=== PATIENT | male | born 1955 | race Caucasian/White ===

== ENCOUNTER 2017-05-03 09:15 | Inpatient (IN) ==
[2017-05-03] MEDS: SALINE FLUSH 10ml SYRINGE IVF PRN ×4 (09:35→14:44)
[2017-05-03] MEDS ORDERED: ONDANSETRON 4 MG/2 ML INJECTION IVP ONE (10:01)
[2017-05-03] MEDS ORDERED: NS 1,000 ML IV ONE ×2 (10:01→10:57)
[2017-05-03] MEDS ORDERED: DiltiaZEM 25 MG/5 ML INJECTION IVP ONE (10:08)
[2017-05-03] MEDS ORDERED: IOHEXOL 300mg/ml 100ml INJECTION ONE ×2 (10:27→11:52)
[2017-05-03] MEDS ORDERED: NS 100 ML ONE ×2 (10:27→11:52)
[2017-05-03] MEDS ORDERED: SALINE FLUSH 10ml SYRINGE ONE (10:28)
[2017-05-03] MEDS ORDERED: METOPROLOL 5mg/5ml INJECTION IVP ONE (10:57)
--- NOTE | 2017-05-03 11:55 | Emergency Department Report ---
Nausea/Vomiting/Diarrhea HPI - General Chief complaint: Nausea/Vomiting/Diarrhea Stated complaint: Vomiting Time Seen by Provider: 05/03/17 09:41 Source: EMS, RN notes reviewed Mode of arrival: EMS Limitations: altered mental status - History of Present Illness HPI Narrative: 61yo man presented to the ER for evaluation by EMS for lack of appetite and refusal to take his medications. Initial reports were that pt did not take his meds today, but a review of the MAR shows spotty medication adherence over the last 2 weeks. Pt has a h/o BP, schizophrenia, and MDD. MD complaint: other Onset (ago): week(s) (2) - Related Data Home Medications Medication Instructions Recorded Confirmed Bisacodyl Supp [Dulcolax] 10 mg RECTALLY DAILY PRN 05/03/17 05/03/17 Divalproex Sprinkle [Depakote 4 cap PO BID 05/03/17 05/03/17 Sprinkle] Haloperidol Inj [Haldol] 5 mg IM Q24H PRN 05/03/17 05/03/17 Hydrocodone/APAP 5/325 [[place] 1 tab PO Q4HR PRN 05/03/17 05/03/17 5/325] LORazepam [Ativan] 0.5 mg PO HS 05/03/17 05/03/17 LORazepam [Ativan] 0.5 mg PO Q3H PRN 05/03/17 05/03/17 Menthol [Biofreeze] 1 applicatio TP PRN 05/03/17 05/03/17 Milk of Magnesia [Mom] 30 ml PO DAILY PRN 05/03/17 05/03/17 Mirtazapine [Remeron] 15 mg PO HS 05/03/17 05/03/17 Ondansetron HCl [Zofran] 4 mg PO Q4HR PRN 05/03/17 05/03/17 fentaNYL [Fentanyl] 12 mcg TD Q3D 05/03/17 05/03/17 Allergies Allergy/AdvReac Type Severity Reaction Status Date / Time No Known Allergies Allergy Verified 05/03/17 09:44 Review of Systems Limitations: ROS unobtainable due to patient's medical condition PFSH Patient Stated Medical History Alzheimer's Disease Yes Dementia Yes Hypertension Yes Other GI Yes: CONSTIPATION Bipolar Disorder Yes Depression Yes: MAJOR DEPRESSIVE Schizophrenia Yes - Social History Smoking status: Unknown if ever smoked Physical Exam - Limitations Limitations: altered mental status - General General appearance: alert, in no apparent distress, cachectic - Normal Exams: Head:: Normocephalic without trauma Eyes:: Pupils are PERRLA w/ EOMI, No scleral icterus, irritation, or foreign bodies noted ENMT:: No facial trauma, nasal exudates, pharyngeal erythema, or exudates are noted Neck:: Full range of motion, without adenopathy Chest/Respirations:: Clear all smith, with good airflow, and symmetry bilaterally Abdomen:: Bowel sounds positive, soft, non-tender, non-distended, no hepatosplenomegaly Lymphatic:: No lymphadenopathy Musculoskeletal:: No tenderness, or deformity noted Integumentary:: No rashes, hives Neurological:: Patient is alert - Cardiovascular Cardiovascular exam: Present: tachycardia, irregular rhythm, normal heart sounds. Absent: regular rate, normal rhythm - Psychiatric Psychiatric exam: Present: agitated, flat affect Course Course Narrative: On initial presentation, pt was tachy (SVT) to the 160-180s. He was otherwise stable, but had not allowed EMS to place an IV. While attempting to place an IV , pt spontaneously converted to a sinus tachycardia with SVC's. IV was placed and IVF started, but pts BP was too low to comfortably give any medication for rate control. Ativan was given to help with agitation and facilitate anticipated interventions. Meanwhile, pt continued to change rhythm from SVT to A-fib w/ RVR to Sinus tachycardia. A second IV was started with IVF running in both IVs. BP increased to >100 systolic. At that time, pt was reassessed and decision was made to give 5mg of metoprolol IV. Rate was then maintained in A- fib/Sinus from 90-120BPM. When pt was deemed stable, he was taken to the radiology suite for Abd/pelv IV for possible SBO. On return, pt cont to fluctuate between A-fib with RVR and Sinus tachycardia. BP remained low, but MAPs remained above 65. Did not repeat metoprolol, despite increased rate to 110-130. Contacted hospitalist for admission. - Consultations Consultation #1: Hospitalist: Dr. Sparks will admit pt to CCU for further eval, treatment, and Cardiology consult. Time: 12:30 Vital Signs Temperature 97.5 F 05/03/17 09:16 Pulse Rate 135 H 05/03/17 09:16 Respiratory Rate 16 05/03/17 09:16 Blood Pressure 101/54 05/03/17 09:16 Pulse Oximetry 96 05/03/17 09:16 Temperature 97.5 F 05/03/17 09:16 Pulse Rate 136 H 05/03/17 12:30 Respiratory Rate 19 05/03/17 12:15 Blood Pressure 92/54 05/03/17 12:30 Pulse Oximetry 100 05/03/17 12:06 Nausea/Vomiting/Diarrhea - Differential Diagnosis Likely: traveler's diarrhea, food poisoning, gastroenteritis, drug-induced nausea and vomiting (SBO) - Medical Records Attestation: I reviewed the patient's medical records. - Lab Data Attestation: I reviewed the patient's lab results. Result diagrams: 05/03/17 09:44 05/03/17 09:44 Lab Results 05/03/17 05/03/17 05/03/17 Range/Units 09:44 09:44 09:44 WBC 8.8 (4.5-11.0) T/MM3 RBC 4.65 (4.50-5.90) M/MM3 Hgb 13.6 (13.5-17.5) GM/DL Hct 42.0 (41-53) % MCV 90.3 (80-100) UM3 MCH 29.2 (26-34) UUG MCHC 32.4 (31-37) GM/DL RDW Std Deviation 46.4 (36.9-50.2) FL Plt Count 333 (130-400) T/MM3 MPV 10.7 (9.4-12.4) UM3 Immature Gran % (Auto) 0.2 (0.0-0.5) % Neut % (Auto) 58.1 (33-66) % Lymph % (Auto) 29.6 (23-45) % [place] % (Auto) 10.5 H (0-9.0) % Eos % (Auto) 1.1 (0-4) % Baso % (Auto) 0.5 (0-2) % Neut # (Auto) 5.1 (1.8-7.7) T/MM3 Lymph # (Auto) 2.6 (1-4.8) T/MM3 [place] # (Auto) 0.9 H (0-0.8) T/MM3 Eos # (Auto) 0.1 (0-0.5) T/MM3 Baso # (Auto) 0.0 (0-0.2) T/MM3 Abs Immat Gran (auto) 0.02 (0.00-0.03) T/MM3 Turbidity < 20 (0-20) Sodium 148 H (134-144) MEQ/L Potassium 4.3 (3.6-5) MEQ/L Chloride 107 (98-107) MEQ/L Carbon Dioxide 27 (22-30) MEQ/L Anion Gap 14 (5-15) MEQ/L BUN 25.0 H (9-20) MG/DL Creatinine 0.8 (0.8-1.5) MG/DL GFR Calculation 98 BUN/Creatinine Ratio 31 H (6-26) RATIO Glucose 122 H (75-110) MG/DL Calculated Osmolality 289 H (261-280) MOSM/KG Calcium 9.5 (8.4-10.2) MG/DL Magnesium 2.2 (1.6-2.3) MG/DL Total Bilirubin 0.80 (0.20-1.30) MG/DL Icterus Index < 2 (0-7) AST 23 (17-59) U/L ALT 33 (21-72) U/L Alkaline Phosphatase 75 (38-126) U/L Total Protein 6.5 (6.3-8.2) G/DL Albumin 3.7 (3.5-5.0) G/DL Globulin 2.8 (2.4-3.6) G/DL Albumin/Globulin Ratio 1.3 (1.1-2.2) RATIO Lipase 50 (23-300) U/L Specimen Hemolysis < 15 (0-25) - Radiology Data Attestation: I reviewed the patient's radiology results. CT Abd/Pelv: FINDINGS: Lower thorax: There is a small left pleural effusion. There is a hiatal hernia. ABDOMEN: Liver: Unremarkable. No mass. Gallbladder and bile ducts: Unremarkable. No calcified stones. No ductal dilation. Pancreas: Unremarkable. No mass. No ductal dilation. Spleen: Unremarkable. No splenomegaly. Adrenals: Unremarkable. No mass. Kidneys and ureters: There is a 38 mm right renal simple appearing cyst. No hydronephrosis. Stomach and bowel: Scattered diverticula noted throughout the colon without evidence of acute diverticulitis. There is a paucity of feces noted throughout the colon except for the cecum and moderate feces in the rectal vault. No obstruction. Appendix: No findings to suggest acute appendicitis. PELVIS: Bladder: Unremarkable. No mass. Reproductive: Unremarkable as visualized. ABDOMEN and PELVIS: Intraperitoneal space: Unremarkable. No free air. No significant fluid collection. Bones/joints: Calcifications are seen in nondilated aorta and iliac vessels. No acute fracture. No dislocation. Soft tissues: Unremarkable. Vasculature: Moderate artery calcifications are noted. Lymph nodes: Unremarkable. No enlarged lymph nodes. IMPRESSION: Small left effusion. Moderate feces within the rectum - EKG Data EKG #1 EKG attestation: Yes: I reviewed and interpreted this EKG. Rhythm: SVT [place]/QRS: left axis deviation ST segment depression in: I (Globally) EKG #2 EKG attestation: Yes: I reviewed and interpreted this EKG. EKG shows normal: sinus rhythm, intervals, QRS complexes, ST-T waves Rate: tachycardia Disposition Clinical Impression: Tachycardia, Fecal impaction in rectum Hypotension Qualifiers: Hypotension type: unspecified hypotension type Qualified Code(s): I95.9 - Hypotension, unspecified [place]: [place] [facility] [place] Language: [place] Condition: Improved Prescriptions: No Action Milk of Magnesia [Mom] 30 ml PO DAILY PRN PRN Reason: Constipation Hydrocodone/APAP 5/325 [Antimony 5/325] 1 tab PO Q4HR PRN PRN Reason: Pain LORazepam [Ativan] 0.5 mg PO Q3H PRN PRN Reason: Anxiety Haloperidol Inj [Haldol] 5 mg IM Q24H PRN PRN Reason: Agitation Bisacodyl Supp [Dulcolax] 10 mg RECTALLY DAILY PRN PRN Reason: Constipation Menthol [Biofreeze] 1 applicatio TP PRN LORazepam [Ativan] 0.5 mg PO HS fentaNYL [Fentanyl] 12 mcg TD Q3D Divalproex Sprinkle [Depakote Sprinkle] 4 cap PO BID Mirtazapine [Remeron] 15 mg PO HS Ondansetron HCl [Zofran] 4 mg PO Q4HR PRN PRN Reason: Nausea Referrals: Lucretia Decker MD [Family Provider] - Time of Disposition: 12:49 - Seen By: physician
[2017-05-03] MEDS ORDERED: KETOROLAC 30 MG/ML INJECTION IVP ONE (12:13)
[2017-05-03] MEDS ORDERED: ONDANSETRON 4 MG/2 ML INJECTION IVP PRN (13:58)
[2017-05-03] MEDS ORDERED: HYDROCODONE/APAP 5mg/325mg TABLET PO PRN (14:05)
[2017-05-03] MEDS ORDERED: HALOPERIDOL 5 MG/ML INJECTION IM PRN (14:05)
[2017-05-03] MEDS ORDERED: BISACODYL 10 MG SUPPOSITORY RECTALLY PRN (14:05)
[2017-05-03] MEDS: NS 1,000 ML IV SCH ×2 (14:16→22:33)
--- NOTE | 2017-05-03 14:44 | History & Physical Report ---
History of Present Illness Date: 05/03/17 Chief complaint: a-fib with RVR, SIRS, nausea/vomiting HPI: Sonido Mcdonnell is a 61-year-old male resident of [facility] who presented to [facility] emergency room via EMS today, 05/03/17, for evaluation of nausea and vomiting. Mr. Mcdonnell has a history of Alzheimer's dementia with schizophrenia, bipolar disorder and major depressive disorder and is a poor historian. Limited prior medical records available from [facility]. History is contributed to by EMS, ED, nursing and prior records. It is reported that on Mr. Mcdonnell began having nausea with vomiting. Since that time, he has been on a clear liquid diet with poor oral intake and decreased appetite. It was also noted that he has not had a documented bowel movement since 04/27/17. Today nursing staff became concerned as Mr. Mcdonnell's vomit had a "metallic" smell to it, and nursing became concerned about possible blood in vomit. No known fevers or illness. Labs at the [facility] on 05/02 were unremarkable. EMS was contacted and upon evaluation, Sonido was noted to be tachycardic with a heart rate between 160-180's. At that time, nursing also reported that the Sonido had been refusing his psychiatric medications. Initially it was believed that he hadn't had his medications for a few days but after thorough review of the MAR, it appears that he has been intermittently compliant with his medications over the past 2 weeks. During his transfer to the ED, EMS reports that he was aggressive and agitated, preventing the placement of an IV. Upon arrival to the ED, vital signs revealed he was afebrile with a heart rate of 137 and blood pressure 90/62. Initially telemetry and EKG revealed SVT with a rate between 160-180. During the placement of an IV, he spontaneously converted to sinus tachycardia with SVC. He was then given Ativan 1mg IV due to his agitation and aggressive behaviors - he was swing at nursing. Labs were obtained. Blood counts were stable. BMP revealed hypernatremia with hyperosmolality and mild hyperglycemia without a history of diabetes. During his acute admission he was noted to transition from SVT to a-fib with RVR to sinus tachycardia off and on. A 2nd IV was started and he had 2L NS running simultaneously. Blood pressure improved slightly with a systolic pressure > 100. Metoprolol 5mg IV was given and improved his rate, decreasing it to between 90-120, which it has since maintained. Due to his borderline hypotension, Cardizem was held. CT abdomen/pelvis was obtained given his recent history of nausea and vomiting and showed moderate feces in the rectal vault and otherwise no acute changes or pathology. In light of his dysrhythmia and a-fib with RVR, Dr. Serrano was contacted and Mr. Mcdonnell was admitted to CCU as an inpatient for further evaluation, close cardiac and respiratory monitoring, cardiology consult with possible intervention and IV fluids for dehydration. Dr. Ragsdale was consulted and patient case discussed with Treasure Carrion APRN. The patient was seen immediately upon his arrival to CCU, room #4, and then later in conjunction with Dr. Serrano. Extensive review of his prior medical records, ED documentation, medication list and current chart were conducted. History and physical exam were extremely limited given Mr. Mcdonnell's mentation and history of dementia with recent treatment with Ativan. PCP is Dr. Decker. Review of chart provides documentation of patient's wishes to be a DNR which were confirmed by Dr. Serrano with patient's guardian. Review of Systems ROS unobtainable: due to mental status All systems PM: 10-point ROS was reviewed, no additional remarkable complaints except - Constitutional Constitutional: Absent: fever(s), increased appetite - EENMT Nose: Absent: nosebleeds Mouth/Throat: Present: dry mouth - Cardiovascular Cardiovascular: Absent: syncope, edema Vascular: Present: varicosities. Absent: pedal edema - Respiratory Respiratory: Absent: wheezing - Gastrointestinal Gastrointestinal: Present: constipation, hematemesis (questionable), nausea, vomiting - Genitourinary Genitourinary: Absent: genital lesions, scrotal swelling - Musculoskeletal Musculoskeletal: Present: abnormal gait, back pain (chronic). Absent: deformity - Integumentary/Breasts Integumentary: Absent: rash Integumentary Comments: seborrheic keratosis to scalp. - Neurological Neurological: Present: abnormal gait, abnormal speech, confusion, frequent falls. Absent: convulsions, focal weakness - Psychiatric Psychiatric: Present: behavioral changes, depression, mood swings - Endocrine Endocrine: Absent: flushing, polyphagia - Hematologic/Lymphatic Hematologic/Lymphatic: Absent: easy bruising - Allergic/Immunologic Allergic/Immunologic: Absent: seasonal rhinorrhea [facility] Patient Stated Medical History Alzheimer's disease. Dementia. Hypertension. CAD. Chronic pain. Hiatal hernia. Constipation. Gait instability with frequent falls. Bipolar disorder Major depressive disorder. Schizophrenia. Seborrheic keratosis. Surgical History: Unable to obtain due to patient's dementia and mentation. Family History Updates: Unable to obtain due to patient's dementia and mentation. - Social History Smoking status: Unknown if ever smoked Substance use type: does not use Alcohol intake frequency: does not drink Housing: [facility] ([facility]) Household members: none Current occupational status: retired, disabled Does patient use chewing tobacco?: No Current residence: Shelter Social history: PCP - Dr. Decker. Medications Home Medications Medication Instructions Recorded Confirmed Type Bisacodyl Supp [Dulcolax] 10 mg RECTALLY DAILY PRN 05/03/17 05/03/17 History Divalproex Sprinkle [Depakote 4 cap PO BID 05/03/17 05/03/17 History Sprinkle] Haloperidol Inj [Haldol] 5 mg IM Q24H PRN 05/03/17 05/03/17 History Hydrocodone/APAP 5/325 [[place] 1 tab PO Q4HR PRN 05/03/17 05/03/17 History 5/325] LORazepam [Ativan] 0.5 mg PO HS 05/03/17 05/03/17 History LORazepam [Ativan] 0.5 mg PO Q3H PRN 05/03/17 05/03/17 History Menthol [Biofreeze] 1 applicatio TP PRN 05/03/17 05/03/17 History Milk of Magnesia [Mom] 30 ml PO DAILY PRN 05/03/17 05/03/17 History Mirtazapine [Remeron] 15 mg PO HS 05/03/17 05/03/17 History Ondansetron HCl [Zofran] 4 mg PO Q4HR PRN 05/03/17 05/03/17 History fentaNYL [Fentanyl] 12 mcg TD Q3D 05/03/17 05/03/17 History Allergies Allergy/AdvReac Type Severity Reaction Status Date / Time No Known Allergies Allergy Verified 05/03/17 09:44 Exam Vital Signs: Temperature 97.6 F 05/03/17 13:34 Pulse Rate 113 H 05/03/17 13:34 Respiratory Rate 18 05/03/17 13:34 Blood Pressure 92/50 05/03/17 13:34 Pulse Oximetry 99 05/03/17 13:22 Telemetry Rhythm: A-fib with RVR Comments: Patient seen upon arrival to room, ICU #4. Nursing present and later joined by Dr. Serrano. Sleeping and arouses briefly with painful stimuli. - Constitutional Present: no acute distress, well nourished, well developed, thin, somnolent Comments: Patient was agitated and aggressive in ED and received ativan 1mg IV. Patient now sleeping without agitation. - Routine HEENT Exam Head: Present: normocephalic, atraumatic ENT: Present: mucous membranes dry Comments: limited exam due to patient sleeping. - Routine Neck Exam Present: supple, trachea midline - Routine Chest/Breast/Axilla Exam Chest wall: Absent: pacemaker - Routine Respiratory Exam Present: decreased breath sounds. Absent: stridor, wheezes, crackles - Routine Cardiovascular Exam Present: irregularly irregular - Routine Abdominal Exam Present: soft, normoactive bowel sounds, non distended, non tender. Absent: rebound, guarding, firm, rigid, hernia - Routine Exam Penile: Present: circumcision. Absent: swelling, lesions, vesicles Scrotal: Absent: swelling, erythema Groin: Absent: tenderness, erythema Perineal: Present: erythema Comments: mild skin breakdown to perianal region. - Routine Extremities Exam Present: no edema, pulses intact, normal capillary refill. Absent: cyanosis, clubbing, calf tenderness - Routine Back/Spine/Pelvis Exam Back/Spine: Present: full ROM, kyphosis Comments: patient actively moving on exam without signs of distress. - Routine Skin Exam Present: intact, dry, warm. Absent: jaundice Comments: afebrile; seborrheic keratosis to scalp noted. - Routine Neurological Exam Present: altered mental status, moving all extremities, hearing grossly intact. Absent: hemineglect, facial asymmetry - Routine Psychiatric Exam Present: unable to assess Comments: recent behaviors with aggression and agitation treated with ativan in ED; now patient is somnolent. Results - Labs CBC & Chem 7: 05/03/17 09:44 05/03/17 09:44 Labs: hypernatremia with hyperosmolality - present on admission. hyperglycemia in non-diabetic - present on admission. - Imaging and Cardiology CT scan - abdomen Status: image reviewed by me Additional comments: V-Rad reading - no acute disease noted; scattered diverticula without evidence of diverticulitis; moderate feces noted in rectal vault without signs of obstruction; small left lower lobe effusion; hiatal hernia. Assessment and Plan (1) SIRS (systemic inflammatory response syndrome) Problem details: present on admission. Current visit: Yes Status: Acute (2) Nausea and vomiting Problem details: present on admission. Current visit: Yes Status: Acute (3) Tachycardia Problem details: present on admission - alternativing between a-fib with RVR, sinus tachycarida and SVT. Current visit: Yes Status: Acute (4) Hyperosmolality with hypernatremia Problem details: present on admission. Current visit: Yes Status: Acute (5) Dehydration Problem details: present on admission. Current visit: Yes Status: Acute (6) Fecal impaction in rectum Problem details: present on admission. Current visit: Yes Status: Acute Assessment and Plan: Assessment SIRS, present on admission, acute. Nausea and vomiting, present on admission, acute. Dysrhythmic tachycardia, present on admission, acute. Hypernatremia with hyperosmolality, present on admission, acute. Dehydration, present on admission, acute. Constipation with fecal impaction, present on admission, acute on chronic. Alzheimer's disease and dementia with behaviors, present on admission, acute on chronic. Hypertension - patient hypotensive on admission. CAD, chronic. Chronic pain. Gait instability with frequent falls. Psychiatric illness - bipolar disorder, major depressive disorder, and schizophrenia, chronic. Plan - 05/03/17 (Admission - [facility]). Admit to inpatient status to CCU under the care of Dr. Serrano for close cardiac and respiratory monitoring. Dr. Ragsdale consulted for cardiac evaluation and expertise. Unknown history of arrhythmia. EKGs concerning for SVT vs. A-fib with RVR vs. Sinus tach. Discussed patient case with MADDI Amanda. Patient given metoprolol 5mg IV in ED with some rate improvement. Currently patient is rate controlled but remains dysrhythmic. Continue to monitor closely on telemetry. TSH within normal limits. Magnesium stable. Potassium stable. SIRS markers met including tachycardia, tachypnea, hyperglycemia in non- diabetic. Concerning for sepsis given hypotension, cardiac dysfunction and borderline lactate at 1.9. No current infectious source known. UA unremarkable. CXR results pending. Procalcitonin pending. Will obtain serial lactates and blood cultures x 2. Initiate Rocephin 1g IV x 24 hours for empiric treatment. If patient remains afebrile without leukocytosis or evidence of infection, consider discontinuation of antibiotics. History of nausea/vomiting since 04/27. CBC stable without leukocytosis or known fever. Hypernatremia with hyperosmolality present on admission. Patient given 2L NS in ED. Will continue NS at 125cc/hr given dehydration and current poor oral intake. Will maintain clear liquid diet as able. Will obtain speech therapy evaluation in AM for dysphagia. Monitor I&O closely as well as daily weights. Zofran as needed for nausea/vomiting. Lactate within normal limits. LFTs stable. CT abdomen/pelvis obtained in ED revealed no acute changes or disease, scattered diverticulosis without evidence of diverticulitis, moderate feces in rectal vault and no obstruction, small left lower lobe effusion and hiatal hernia. Given concern for sepsis and dysrhythmia as well as effusion noted on CT, will obtain CXR now for further complete evaluation. Encourage incentive spirometry as able. Bruise to right hip noted. No reported history of trauma. No apparent tenderness with palpation. CT abdomen/pelvis noted no acute bony changes or fracture. If apparent pain with movement or other changes are noted, may consider obtaining separate imaging of hip. Will hold off for now. Given concern for possible blood in vomit per NH, will initiate Protonix 40mg IV daily for GI protection. Will assess for occult blood in emesis. SCDs for DVT prophylaxis. Will discuss possible Lovenox or other anticoagulant with Dr. Serrano for additional prophylaxis. Continue home medications. Haldol and ativan for agitation and aggression. Baseline behaviors are unknown. May consider psychiatric consult if behaviors continue. Continue with bowel motivation as needed given history of constipation and current fecal impaction. Provide safe and supportive environment. DNR documentation noted in chart and verified by Dr. eSrrano with patient's guardian. Patient is expected to stay > 2 over nights and upon discharge, care will be returned to his PCP, Dr. Decker. DVT Prophylaxis: SCD's GI Prophylaxis: Protonix Resuscitation Status: Do Not Resuscitate - Time spent with patient Time with patient PN: other (110 minutes) Sepsis Assessment - Evaluation Possible source: pulmonary Confirmed Suspected Infection: No SIRS Criteria: pulse > or equal to 90 beats/minute, blood sugar >120 in non- diabetic, RR > or equal to 20 Severe Sepsis: SBP < 90, cardiac dysfunction Hospital Course Summary Disclaimer: The visit summary below is not to be considered part of the above Progress Note. Hospital Course: Assessment SIRS, present on admission, acute. Nausea and vomiting, present on admission, acute. Dysrhythmic tachycardia, present on admission, acute. Hypernatremia with hyperosmolality, present on admission, acute. Dehydration, present on admission, acute. Constipation with fecal impaction, present on admission, acute on chronic. Alzheimer's disease and dementia with behaviors, present on admission, acute on chronic. Hypertension - patient hypotensive on admission. CAD, chronic. Chronic pain. Gait instability with frequent falls. Psychiatric illness - bipolar disorder, major depressive disorder, and schizophrenia, chronic. Plan - 05/03/17 (Admission - [facility]). Admit to inpatient status to CCU under the care of Dr. Serrano for close cardiac and respiratory monitoring. Dr. Ragsdale consulted for cardiac evaluation and expertise. Unknown history of arrhythmia. EKGs concerning for SVT vs. A-fib with RVR vs. Sinus tach. Discussed patient case with MADDI Amanda. Patient given metoprolol 5mg IV in ED with some rate improvement. Currently patient is rate controlled but remains dysrhythmic. Continue to monitor closely on telemetry. TSH within normal limits. Magnesium stable. Potassium stable. SIRS markers met including tachycardia, tachypnea, hyperglycemia in non- diabetic. Concerning for sepsis given hypotension, cardiac dysfunction and borderline lactate at 1.9. No current infectious source known. UA unremarkable. CXR results pending. Procalcitonin pending. Will obtain serial lactates and blood cultures x 2. Initiate Rocephin 1g IV x 24 hours for empiric treatment. If patient remains afebrile without leukocytosis or evidence of infection, consider discontinuation of antibiotics. History of nausea/vomiting since 04/27. CBC stable without leukocytosis or known fever. Hypernatremia with hyperosmolality present on admission. Patient given 2L NS in ED. Will continue NS at 125cc/hr given dehydration and current poor oral intake. Will maintain clear liquid diet as able. Will obtain speech therapy evaluation in AM for dysphagia. Monitor I&O closely as well as daily weights. Zofran as needed for nausea/vomiting. Lactate within normal limits. LFTs stable. CT abdomen/pelvis obtained in ED revealed no acute changes or disease, scattered diverticulosis without evidence of diverticulitis, moderate feces in rectal vault and no obstruction, small left lower lobe effusion and hiatal hernia. Given concern for sepsis and dysrhythmia as well as effusion noted on CT, will obtain CXR now for further complete evaluation. Encourage incentive spirometry as able. Bruise to right hip noted. No reported history of trauma. No apparent tenderness with palpation. CT abdomen/pelvis noted no acute bony changes or fracture. If apparent pain with movement or other changes are noted, may consider obtaining separate imaging of hip. Will hold off for now. Given concern for possible blood in vomit per NH, will initiate Protonix 40mg IV daily for GI protection. Will assess for occult blood in emesis. SCDs for DVT prophylaxis. Will discuss possible Lovenox or other anticoagulant with Dr. Serrano for additional prophylaxis. Continue home medications. Haldol and ativan for agitation and aggression. Baseline behaviors are unknown. May consider psychiatric consult if behaviors continue. Continue with bowel motivation as needed given history of constipation and current fecal impaction. Provide safe and supportive environment. DNR documentation noted in chart and verified by Dr. Serrano with patient's guardian. Patient is expected to stay > 2 over nights and upon discharge, care will be returned to his PCP, Dr. Decker.
[2017-05-03] MEDS ORDERED: BISACODYL 10 MG SUPPOSITORY RECTALLY ONE (15:18)
[2017-05-03] MEDS: CEFTRIAXONE 1 G in NS 100 ML IV SCH (15:36)
[2017-05-03] MEDS: PANTOPRAZOLE 40 MG INJECTION IVP SCH (16:56)
[2017-05-03] MEDS ORDERED: ASENAPINE 5 MG SUBLINGUAL TABLET SL SCH (21:00)
[2017-05-04] MEDS: MIRTAZAPINE 15 MG TABLET PO SCH ×2 (04:34→21:30)
[2017-05-04] MEDS: DIVALPROEX SPRINKLE 125 MG CAPSULE PO SCH ×3 (04:34→08:44)
[2017-05-04] MEDS: HALOPERIDOL 5 MG/ML INJECTION IVP PRN ×3 (04:40→21:49)
[2017-05-04] MEDS: SALINE FLUSH 10ml SYRINGE IVF PRN (04:41)
[2017-05-04] MEDS: NS 1,000 ML IV SCH (06:39)
[2017-05-04] MEDS: PANTOPRAZOLE 40 MG INJECTION IVP SCH (08:12)
--- NOTE | 2017-05-04 09:52 | CT Scan Report ---
Indication: N/V/anorexia PROCEDURE: CT abdomen pelvis w con: Encounter: Initial Comparison: None. Findings: CT ABDOMEN: There is a trace amount of left basilar atelectasis. Heart size normal. No pleural effusion. Incidental note is made of a recurrent right hepatic vein. There is a small hiatal hernia. Both kidneys excrete contrast into nondilated renal collecting system. There is a fairly large but simple appearing exophytic cyst projecting from the anterior inferior right kidney. The liver, spleen, pancreas, and adrenal glands are normal. The gallbladder is thin walled and nondistended, without stones. The abdominal aorta is non-aneurysmal, with extensive circumferential calcific atherosclerotic disease. There is no retroperitoneal or mesenteric adenopathy. There is no definite bowel distention or bowel wall thickening. CT PELVIS: There is moderate stool in the rectal vault without fecal impaction. A normal appendix is tentatively identified. The urinary bladder is not distended. There is no pelvic sidewall adenopathy. No free fluid. No definite bony destructive process. IMPRESSION: No evidence for infectious or inflammatory process. No evidence for mass or adenopathy. Preliminary report was provided by Jagdeep garay .
--- NOTE | 2017-05-04 10:20 | XRay Report ---
Indication: hypotension PROCEDURE: XR chest 1V: Encounter: Initial Comparison: None. Findings: The examination is slightly expiratory in nature. There is some left basilar atelectasis. No definite pleural effusion. Heart size is normal. No pneumothorax. No mediastinal or hilar adenopathy. No subdiaphragmatic free air. Impression: Left basilar atelectasis. No definite pleural effusion or lobar consolidation. .
--- NOTE | 2017-05-04 12:08 | Cardiology Consult Note ---
<Treasure Carrillo - Last Filed: 05/05/17 14:52> History of Present Illness Consult date: 05/03/17 Requesting physician: Alla Vance Consult reason: atrial fibrillation Chief complaint: afib RVR/ SVT History of present illness: Sonido Mcdonnell is a 61-year-old male resident of [facility] who presented to [facility] emergency room via EMS 05/03/17, for evaluation of nausea and vomiting. He has a history of Alzheimer's dementia with schizophrenia, bipolar disorder and major depressive disorder and is a poor historian. Limited prior medical records available from [facility]. History is contributed to by EMS, ED, nursing and prior records. On 04/27/17, he reportedly began having nausea with vomiting. Since that time, he has been on a clear liquid diet with poor oral intake and decreased appetite. It was also noted that he has not had a documented bowel movement since 04/27/17. Nursing staff became concerned as his vomit had a "metallic" smell to it, and nursing became concerned about possible blood in vomit. No known fevers or illness. EMS was contacted and upon evaluation, Sonido was noted to be tachycardic with a heart rate between 160- 180's. He has reportedly been refusing his psychiatric medications intermittently over the past 2 weeks. During his transfer to the ED, EMS reports that he was aggressive and agitated, initially telemetry and EKG revealed SVT with a rate between 160-180. During the placement of an IV, he spontaneously converted to sinus tachycardia with SVC. He was then given Ativan 1mg IV due to his agitation and aggressive behaviors . Later he was noted to transition from SVT to a-fib with RVR to sinus tachycardia off and on. Metoprolol 5mg IV was given and improved his rate , decreasing it to between 90-120. In light of his dysrhythmia and a-fib with RVR, Dr. Serrano was contacted and Mr. Mcdonnell was admitted to CCU as an inpatient for further evaluation, close cardiac and respiratory monitoring, cardiology consult with possible intervention and IV fluids for dehydration. Dr. Ragsdale was consulted and we appreciate the consult. Review of Systems ROS unobtainable: due to mental status - Constitutional Constitutional: Present: fever(s) PFSH Patient Stated Medical History Alzheimer's Disease Yes Dementia Yes Hypertension Yes Hiatal Hernia Yes Other GI Yes: CONSTIPATION Other Yes: frequent falls Bipolar Disorder Yes Depression Yes: MAJOR DEPRESSIVE Schizophrenia Yes Other Behavioral Health Yes: [facility] Medical History Tachycardia (Acute Medical) present on admission - alternativing between a-fib with RVR, sinus tachycarida and SVT. Hypotension (Acute Medical) Fecal impaction in rectum (Acute Medical) present on admission. Hyperosmolality with hypernatremia (Acute Medical) present on admission. Dehydration (Acute Medical) present on admission. SIRS (systemic inflammatory response syndrome) (Acute Medical) present on admission. Nausea and vomiting (Acute Medical) present on admission. Surgical History: Unable to obtain due to patient's dementia and mentation. Family History: Unable to obtain from Patient due to mental status - Social History Smoking status: Unknown if ever smoked Housing: [facility] Household members: none Current occupational status: disabled Does patient use chewing tobacco?: No Current residence: [facility] Medications Home Medications Medication Instructions Recorded Confirmed Type Bisacodyl Supp [Dulcolax] 10 mg RECTALLY DAILY PRN 05/03/17 05/03/17 History Divalproex Sprinkle [Depakote 4 cap PO BID 05/03/17 05/03/17 History Sprinkle] Haloperidol Inj [Haldol] 5 mg IM Q24H PRN 05/03/17 05/03/17 History Hydrocodone/APAP 5/325 [[place] 1 tab PO Q4HR PRN 05/03/17 05/03/17 History 5/325] LORazepam [Ativan] 0.5 mg PO HS 05/03/17 05/03/17 History LORazepam [Ativan] 0.5 mg PO Q3H PRN 05/03/17 05/03/17 History Menthol [Biofreeze] 1 applicatio TP PRN 05/03/17 05/03/17 History Milk of Magnesia [Mom] 30 ml PO DAILY PRN 05/03/17 05/03/17 History Mirtazapine [Remeron] 15 mg PO HS 05/03/17 05/03/17 History Ondansetron HCl [Zofran] 4 mg PO Q4HR PRN 05/03/17 05/03/17 History fentaNYL [Fentanyl] 12 mcg TD Q3D 05/03/17 05/03/17 History Allergies Allergy/AdvReac Type Severity Reaction Status Date / Time No Known Allergies Allergy Verified 05/03/17 09:44 Exam Vital signs: Temperature 97.9 F 05/04/17 07:01 Pulse Rate 95 05/04/17 07:41 Respiratory Rate 16 05/04/17 07:01 Blood Pressure 156/63 H 05/04/17 07:01 Pulse Oximetry 96 05/04/17 07:01 - Constitutional no acute distress, well nourished, cooperative - Routine HEENT Exam Head: Present: normocephalic ENT: Present: mucous membranes moist - Routine Neck Exam Absent: JVD, carotid bruit - Routine Chest/Breast/Axilla Exam Chest wall: Absent: tenderness - Routine Respiratory Exam Present: CTA bilaterally. Absent: rales, wheezes - Routine Cardiovascular Exam Present: RRR, no murmur. Absent: JVD - Routine Abdominal Exam Present: soft, normoactive bowel sounds - Routine Extremities Exam Present: no edema - Routine Skin Exam Present: intact, dry, warm - Routine Neurological Exam Present: altered mental status - Routine Psychiatric Exam Present: unable to assess Results 05/05/17 04:04 05/05/17 04:04 CBC 05/04/17 Range/Units 03:29 WBC 6.4 (4.5-11.0) T/MM3 RBC 3.60 L (4.50-5.90) M/MM3 Hgb 10.7 L D (13.5-17.5) GM/DL Hct 33.0 L D (41-53) % Plt Count 236 (130-400) T/MM3 Comprehensive Metabolic Panel 05/04/17 Range/Units 03:29 Sodium 151 H (134-144) MEQ/L Potassium 4.3 (3.6-5) MEQ/L Chloride 117 H D (98-107) MEQ/L Carbon Dioxide 25 (22-30) MEQ/L BUN 20.0 (9-20) MG/DL Creatinine 0.9 (0.8-1.5) MG/DL Glucose 83 (75-110) MG/DL Calcium 8.2 L D (8.4-10.2) MG/DL Albumin 3.0 L (3.5-5.0) G/DL Intake and Output 05/03/17 05/04/17 05/04/17 22:59 06:59 14:59 Intake Total 1100.000 / 2819.620 3609 / 1000 30 / 30 Output Total 75 / 75 Balance 1100.000 / 6424.818 0948 / 1000 -45 / -45 Intake: IV 1100.000 / 8728.974 6892 / 1000 Ceftriaxone 1 g In Ns 100 100 / 100 ml @ 200 mls/hr IV Q24H B[facility]AR Rx#:[id number] Ns 1,000 ml @ 125 mls/hr 1000.000 / 0853.029 1493 / 1000 IV .Q8H BANDAR Rx#:[id number] Oral 30 / 30 Output: Urine 75 / 75 Other: Urine Color Light [place] Urine Odor Strong Stool Color Brown Brown Brown Stool Consistency Soft Soft Soft Formed Size of Bowel Movement Small Moderate Large # Voids 1 # Incontinent Voids 1 1 # Bowel Movements 1 # Incontinent Bowel 1 1 Movements Weight 163 lb 5.8 oz Patient Weight 05/05/17 06:59 Weight 163 lb 5.8 oz - Imaging and Cardiology Echo: report reviewed EKG results: image reviewed Imaging & Cardiology Narrative: Date of Exam: 05/04/17 Type of Exam(s): US echo doppler complete DATE OF PROCEDURE May 04, [address] Shannan Serrano This is a two-dimensional echo with spectral Doppler, color-flow and M-mode. It was obtained in a patient with arrhythmias. Left atrial dimension is normal. Left ventricle end-diastolic dimension is normal. Left ventricle wall thickness is normal. LV systolic function is normal with ejection fraction of 55%. Right atrium is normal. Right ventricle is normal. Aortic root dimension is normal. Mitral valve is morphologically normal with trace of mitral regurgitation.. Aortic valve is a trileaflet structure with no stenosis or insufficiency. Tricuspid valve shows trace of tricuspid regurgitation with normal estimated pulmonary artery systolic pressure of 23. Pulmonary valve shows no pulmonary insufficiency. There is no pericardial effusion. IMPRESSION 1. Normal LV systolic function with ejection fraction of 55%. 2. Trace of mitral regurgitation. 3. Trace of tricuspid regurgitation with normal estimated pulmonary artery systolic pressure of 23. 4. Aortic sclerosis. Date of Exam: 05/03/17 Ordering Provider: Glo Gonsalez Type of Exam(s): XR chest 1V Reason for Exam(s): hypotension Indication: hypotension PROCEDURE: XR chest 1V: Encounter: Initial Comparison: None. Findings: The examination is slightly expiratory in nature. There is some left basilar atelectasis. No definite pleural effusion. Heart size is normal. No pneumothorax. No mediastinal or hilar adenopathy. No subdiaphragmatic free air. Impression: Left basilar atelectasis. No definite pleural effusion or lobar consolidation. Assessment and Plan - Assessment and Plan (1) Tachycardia Problem details: present on admission - alternativing between a-fib with RVR, sinus tachycarida and SVT. Current visit: Yes Status: Acute Metoprolol 25mg po BID TSH, Mag Echocardiogram Hospital Course Summary Disclaimer: The visit summary below is not to be considered part of the above Progress Note. Hospital Course: Assessment SIRS, present on admission, acute. Nausea and vomiting, present on admission, acute. Dysrhythmic tachycardia, present on admission, acute. Hypernatremia with hyperosmolality, present on admission, acute. Dehydration, present on admission, acute. Constipation with fecal impaction, present on admission, acute on chronic. Alzheimer's disease and dementia with behaviors, present on admission, acute on chronic. Hypertension - patient hypotensive on admission. CAD, chronic. Chronic pain. Gait instability with frequent falls. Psychiatric illness - bipolar disorder, major depressive disorder, and schizophrenia, chronic. Plan - 05/03/17 (Admission - [facility] Admit to inpatient status to CCU under the care of Dr. Serrano for close cardiac and respiratory monitoring. Dr. Ragsdale consulted for cardiac evaluation and expertise. Unknown history of arrhythmia. EKGs concerning for SVT vs. A-fib with RVR vs. Sinus tach. Discussed patient case with MADDI Amanda. Patient given metoprolol 5mg IV in ED with some rate improvement. Currently patient is rate controlled but remains dysrhythmic. Continue to monitor closely on telemetry. TSH within normal limits. Magnesium stable. Potassium stable. SIRS markers met including tachycardia, tachypnea, hyperglycemia in non- diabetic. Concerning for sepsis given hypotension, cardiac dysfunction and borderline lactate at 1.9. No current infectious source known. UA unremarkable. CXR results pending. Procalcitonin pending. Will obtain serial lactates and blood cultures x 2. Initiate Rocephin 1g IV x 24 hours for empiric treatment. If patient remains afebrile without leukocytosis or evidence of infection, consider discontinuation of antibiotics. History of nausea/vomiting since 11/27. CBC stable without leukocytosis or known fever. Hypernatremia with hyperosmolality present on admission. Patient given 2L NS in ED. Will continue NS at 125cc/hr given dehydration and current poor oral intake. Will maintain clear liquid diet as able. Will obtain speech therapy evaluation in AM for dysphagia. Monitor I&O closely as well as daily weights. Zofran as needed for nausea/vomiting. Lactate within normal limits. LFTs stable. CT abdomen/pelvis obtained in ED revealed no acute changes or disease, scattered diverticulosis without evidence of diverticulitis, moderate feces in rectal vault and no obstruction, small left lower lobe effusion and hiatal hernia. Given concern for sepsis and dysrhythmia as well as effusion noted on CT, will obtain CXR now for further complete evaluation. Encourage incentive spirometry as able. Bruise to right hip noted. No reported history of trauma. No apparent tenderness with palpation. CT abdomen/pelvis noted no acute bony changes or fracture. If apparent pain with movement or other changes are noted, may consider obtaining separate imaging of hip. Will hold off for now. Given concern for possible blood in vomit per NH, will initiate Protonix 40mg IV daily for GI protection. Will assess for occult blood in emesis. SCDs for DVT prophylaxis. Will discuss possible Lovenox or other anticoagulant with Dr. Serrano for additional prophylaxis. Continue home medications. Haldol and ativan for agitation and aggression. Baseline behaviors are unknown. May consider psychiatric consult if behaviors continue. Continue with bowel motivation as needed given history of constipation and current fecal impaction. Provide safe and supportive environment. DNR documentation noted in chart and verified by Dr. Serrano with patient's guardian. Patient is expected to stay > 2 over nights and upon discharge, care will be returned to his PCP, Dr. Decker. <Jaron Ragsdale - Last Filed: 05/06/17 07:31> [facility] Patient Stated Medical History Alzheimer's Disease Yes Dementia Yes Hypertension Yes Hiatal Hernia Yes Other GI Yes: CONSTIPATION Other Yes: frequent falls Bipolar Disorder Yes Depression Yes: MAJOR DEPRESSIVE Schizophrenia Yes Other Behavioral Health Yes: [facility] Medical History Tachycardia (Acute Medical) present on admission - alternativing between a-fib with RVR, sinus tachycarida and SVT. Hypotension (Acute Medical) Fecal impaction in rectum (Acute Medical) present on admission. Hyperosmolality with hypernatremia (Acute Medical) present on admission. Dehydration (Acute Medical) present on admission. SIRS (systemic inflammatory response syndrome) (Acute Medical) present on admission. Nausea and vomiting (Resolved Medical) present on admission. Exam Vital signs: Temperature 96.9 F 05/06/17 04:00 Pulse Rate 79 05/06/17 04:00 Respiratory Rate 20 05/06/17 04:00 Blood Pressure 122/69 05/06/17 04:00 Pulse Oximetry 98 05/06/17 04:00 Results 05/06/17 04:49 05/06/17 04:49 CBC 05/06/17 Range/Units 04:49 WBC 4.0 L (4.5-11.0) T/MM3 RBC 3.78 L (4.50-5.90) M/MM3 Hgb 11.0 L D (13.5-17.5) GM/DL Hct 33.3 L (41-53) % Plt Count 244 (130-400) T/MM3 Neut # (Auto) 2.1 (1.8-7.7) T/MM3 Lymph # (Auto) 1.4 (1-4.8) T/MM3 [place] # (Auto) 0.3 (0-0.8) T/MM3 Eos # (Auto) 0.2 (0-0.5) T/MM3 Baso # (Auto) 0.0 (0-0.2) T/MM3 Comprehensive Metabolic Panel 05/06/17 Range/Units 04:49 Sodium 143 (134-144) MEQ/L Potassium 4.1 (3.6-5) MEQ/L Chloride 111 H (98-107) MEQ/L Carbon Dioxide 23 (22-30) MEQ/L BUN 7.0 L (9-20) MG/DL Creatinine 0.7 L (0.8-1.5) MG/DL Glucose 73 L (75-110) MG/DL Calcium 8.1 L (8.4-10.2) MG/DL Intake and Output 05/05/17 05/06/17 05/06/17 22:59 06:59 14:59 Intake Total 1567.5 / 1567.5 469.167 / 469.167 Balance 1567.5 / 1567.5 469.167 / 469.167 Intake: IV 1517.5 / 1517.5 469.167 / 469.167 1/2 Ns 1,000 ml @ 125 mls 1412.5 / 1412.5 /hr IV .Q8H [facility] Rx#: [id number] NS with KCL 20 mEq 1,000 469.167 / 469.167 ml @ 50 mls/hr IV .Q20H [facility] Rx#:[id number] Valproate IV 500 mg In Ns 105 / 105 100 ml @ 100 mls/hr IV Q12H BANDAR Rx#:[id number] Oral 50 / 50 Other: Size of Bowel Movement Moderate # Incontinent Voids 1 1 # Incontinent Bowel 1 Movements Assessment and Plan - Attestation Attestation Narrative: 05/06/17 07:31 Recommendation After examining the patient I agree with the above assessment. I am involved in the formulation of the patient's plan of care. - Assessment and Plan (1) Tachycardia Problem details: present on admission - alternativing between a-fib with RVR, sinus tachycarida and SVT. Current visit: Yes Status: Acute Hospital Course Summary Disclaimer: The visit summary below is not to be considered part of the above Progress Note.
[2017-05-04] MEDS: 1/2 NS 1,000 ML IV SCH ×2 (12:45→23:04)
[2017-05-04] MEDS ORDERED: FALL RISK - PHARMACY CONSULT XX ONE (14:01)
[2017-05-04] MEDS: CEFTRIAXONE 1 G in NS 100 ML IV SCH (14:09)
[2017-05-04] MEDS: VALPROATE IV 500 MG in NS 100 ML IV SCH (18:03)
--- NOTE | 2017-05-04 19:24 | Progress Note ---
- Date 05/04/17 Subjective: Sonido was resting comfortably when sitting. He denied dyspnea, chest pain, nausea , abdominal pain, or lightheadedness. Nursing reports he is having bowel movements about every 2 hours after a suppository-stools were initially's formed but have become soft. Patient reports his appetite is good but nursing indicates he is taking little orally and that he's not taking medications at all which apparently was a problem preceding transfer to the hospital. Objective Vital signs: Temperature 96.9 F 05/04/17 17:22 Pulse Rate 85 05/04/17 17:47 Respiratory Rate 17 05/04/17 17:22 Blood Pressure 137/71 05/04/17 17:22 Pulse Oximetry 96 05/04/17 17:22 I/O 5765/575 + inc EXAM General-NAD, speech very mumbled HEENT-conjunctiva clear, pupils equal, sclera anicteric, conjugate eye movements , oral membranes dry Lungs-respirations nonlabored, fair airflow, anterior smith clear Cardiac-rhythm is slightly irregular with S1-S2 audible Abd-soft, nontender, bowel sounds present Ext-without edema Neuro-MAEW Psych-flat affect - Height/Weight/BMI: Weight 74.1 kg Results - Labs CBC & Chem 7: 05/04/17 03:29 05/04/17 03:29 Labs: Lactic acid 1.9-1.8-1.0 Microbiology Results: Microbiology 05/03/17 14:30 Urine, Cath Straight Urine Culture - Preliminary No Growth After 1 Day 05/03/17 14:58 Peripheral/Iv Start Blood Culture - Preliminary No Growth After 1 Day 05/03/17 14:42 Peripheral/Iv Start Blood Culture - Preliminary No Growth After 1 Day - Imaging and Cardiology Chest x-ray Status: image reviewed by me ([email or web address]) Assessment and Plan (1) Tachycardia Problem details: present on admission - alternativing between a-fib with RVR, sinus tachycarida and SVT. Current visit: Yes Status: Acute (2) Fecal impaction in rectum Problem details: present on admission. Current visit: Yes Status: Acute (3) Hyperosmolality with hypernatremia Problem details: present on admission. Current visit: Yes Status: Acute (4) Nausea and vomiting Problem details: present on admission. Current visit: Yes Status: Acute Assessment and Plan: Assessment A. fib-RVR/sinus tach/SVT Dysrhythmic tachycardia, POA, acute. Nausea and vomiting, POA, acute. Hypernatremia with hyperosmolality, POA, acute. Hypotension, POA SIRS-POA Dehydration, POA, acute. Constipation with fecal impaction, POA, acute on chronic. Alzheimer's disease and dementia with behaviors, POA, acute on chronic. Hypertension -chronic. CAD, chronic. Chronic pain. Gait instability with frequent falls. Psychiatric illness - bipolar disorder, major depressive disorder, and schizophrenia, chronic. Plan Rhythm/rate remained stable. Cardiology consultation initiated. Echocardiogram pending. Has received fluids since admission, sodium climbing-converted to half-normal saline. Poor oral intake, refusing oral meds. Depakote converted to IV administration, anticipate psychiatric consultation, generations evaluation. No ongoing nausea/vomiting reported by staff; multiple bowel movements since admission. Empiric treatment initiated with ceftriaxone on admission, no clear indication of infection. Cultures negative to date-if blood cultures negative tomorrow will discontinue antibiotics. SIRS criteria can largely be explained by dehydration/tachyarrhythmias. Stable to transfer out of ICU. Nursing provide majority of reliable history. DVT Prophylaxis: SCD's GI Prophylaxis: Protonix Resuscitation Status: Do Not Resuscitate Hospital Course Summary Disclaimer: The visit summary below is not to be considered part of the above Progress Note. Hospital Course: Assessment SIRS, present on admission, acute. Nausea and vomiting, present on admission, acute. Dysrhythmic tachycardia, present on admission, acute. Hypernatremia with hyperosmolality, present on admission, acute. Dehydration, present on admission, acute. Constipation with fecal impaction, present on admission, acute on chronic. Alzheimer's disease and dementia with behaviors, present on admission, acute on chronic. Hypertension - patient hypotensive on admission. CAD, chronic. Chronic pain. Gait instability with frequent falls. Psychiatric illness - bipolar disorder, major depressive disorder, and schizophrenia, chronic. Plan - 05/03/17 (Admission - [facility]). Admit to inpatient status to CCU under the care of Dr. Serrano for close cardiac and respiratory monitoring. Dr. Ragsdale consulted for cardiac evaluation and expertise. Unknown history of arrhythmia. EKGs concerning for SVT vs. A-fib with RVR vs. Sinus tach. Discussed patient case with MADDI Amanda. Patient given metoprolol 5mg IV in ED with some rate improvement. Currently patient is rate controlled but remains dysrhythmic. Continue to monitor closely on telemetry. TSH within normal limits. Magnesium stable. Potassium stable. SIRS markers met including tachycardia, tachypnea, hyperglycemia in non- diabetic. Concerning for sepsis given hypotension, cardiac dysfunction and borderline lactate at 1.9. No current infectious source known. UA unremarkable. CXR results pending. Procalcitonin pending. Will obtain serial lactates and blood cultures x 2. Initiate Rocephin 1g IV x 24 hours for empiric treatment. If patient remains afebrile without leukocytosis or evidence of infection, consider discontinuation of antibiotics. History of nausea/vomiting since 04/27. CBC stable without leukocytosis or known fever. Hypernatremia with hyperosmolality present on admission. Patient given 2L NS in ED. Will continue NS at 125cc/hr given dehydration and current poor oral intake. Will maintain clear liquid diet as able. Will obtain speech therapy evaluation in AM for dysphagia. Monitor I&O closely as well as daily weights. Zofran as needed for nausea/vomiting. Lactate within normal limits. LFTs stable. CT abdomen/pelvis obtained in ED revealed no acute changes or disease, scattered diverticulosis without evidence of diverticulitis, moderate feces in rectal vault and no obstruction, small left lower lobe effusion and hiatal hernia. Given concern for sepsis and dysrhythmia as well as effusion noted on CT, will obtain CXR now for further complete evaluation. Encourage incentive spirometry as able. Bruise to right hip noted. No reported history of trauma. No apparent tenderness with palpation. CT abdomen/pelvis noted no acute bony changes or fracture. If apparent pain with movement or other changes are noted, may consider obtaining separate imaging of hip. Will hold off for now. Given concern for possible blood in vomit per NH, will initiate Protonix 40mg IV daily for GI protection. Will assess for occult blood in emesis. SCDs for DVT prophylaxis. Will discuss possible Lovenox or other anticoagulant with Dr. Serrano for additional prophylaxis. Continue home medications. Haldol and ativan for agitation and aggression. Baseline behaviors are unknown. May consider psychiatric consult if behaviors continue. Continue with bowel motivation as needed given history of constipation and current fecal impaction. Provide safe and supportive environment. DNR documentation noted in chart and verified by Dr. Serarno with patient's guardian. Patient is expected to stay > 2 over nights and upon discharge, care will be returned to his PCP, Dr. Decker. 05/04/17 19:33 Rhythm/rate remained stable. Cardiology consultation initiated. Echocardiogram pending. Has received fluids since admission, sodium climbing-converted to half-normal saline. Poor oral intake, refusing oral meds. Depakote converted to IV administration, anticipate psychiatric consultation, generations evaluation. No ongoing nausea/vomiting reported by staff; multiple bowel movements since admission. Empiric treatment initiated with ceftriaxone on admission, no clear indication of infection. Cultures negative to date-if blood cultures negative tomorrow will discontinue antibiotics. SIRS criteria can largely be explained by dehydration/tachyarrhythmias. Stable to transfer out of ICU.
[2017-05-05] MEDS: HALOPERIDOL 5 MG/ML INJECTION IVP PRN (03:39)
[2017-05-05] MEDS: 1/2 NS 1,000 ML IV SCH ×2 (07:50→17:51)
[2017-05-05] MEDS: VALPROATE IV 500 MG in NS 100 ML IV SCH ×2 (07:52→17:52)
--- NOTE | 2017-05-05 08:46 | Echocardiogram ---
DATE OF PROCEDURE May 04, [address] Shannan Serrano This is a two-dimensional echo with spectral Doppler, color-flow and M-mode. It was obtained in a patient with arrhythmias. Left atrial dimension is normal. Left ventricle end-diastolic dimension is normal. Left ventricle wall thickness is normal. LV systolic function is normal with ejection fraction of 55%. Right atrium is normal. Right ventricle is normal. Aortic root dimension is normal. Mitral valve is morphologically normal with trace of mitral regurgitation.. Aortic valve is a trileaflet structure with no stenosis or insufficiency. Tricuspid valve shows trace of tricuspid regurgitation with normal estimated pulmonary artery systolic pressure of 23. Pulmonary valve shows no pulmonary insufficiency. There is no pericardial effusion. IMPRESSION 1. Normal LV systolic function with ejection fraction of 55%. 2. Trace of mitral regurgitation. 3. Trace of tricuspid regurgitation with normal estimated pulmonary artery systolic pressure of 23. 4. Aortic sclerosis. MTDD
[2017-05-05] MEDS: PANTOPRAZOLE 40 MG INJECTION IVP SCH (10:04)
[2017-05-05] MEDS: CEFTRIAXONE 1 G in NS 100 ML IV SCH (13:51)
--- NOTE | 2017-05-05 14:56 | Cardiology Progress Note ---
<Treasure Carrillo - Last Filed: 05/06/17 17:43> Subjective Principal diagnosis: arrhythmia Interval history: Sonido is seen in follow up for arrhythmia. He is in his bed on the Medical unit, he does not respond the verbal questions or touch. Exam Vital signs: Temperature 96.1 F L 05/05/17 11:33 Pulse Rate 61 05/05/17 11:52 Respiratory Rate 16 05/05/17 11:33 Blood Pressure 103/65 05/05/17 11:33 Pulse Oximetry 95 05/05/17 11:33 - Constitutional no acute distress, well nourished, cooperative - Routine HEENT Exam Head: Present: normocephalic ENT: Present: mucous membranes moist - Routine Neck Exam Absent: JVD, carotid bruit - Routine Chest/Breast/Axilla Exam Chest wall: Absent: tenderness - Routine Respiratory Exam Present: CTA bilaterally. Absent: rales, wheezes - Routine Cardiovascular Exam Present: RRR. Absent: JVD - Routine Abdominal Exam Present: soft, normoactive bowel sounds - Routine Extremities Exam Present: no edema - Routine Skin Exam Present: intact, dry, warm - Routine Neurological Exam Present: altered mental status - Routine Psychiatric Exam Present: unable to assess - Additional findings Additional findings: Hydrocodone Bitart/Acetaminophen ([place] 5/325) 1 tab PO Q4HR PRN PRN Reason: Pain Bisacodyl (Dulcolax) 10 mg RECTALLY DAILY PRN PRN Reason: Constipation Last Admin: 05/05/17 12:57 Dose: 10 mg Divalproex Sodium (Depakote Sprinkle) 500 mg PO BID [facility] Last Admin: 05/04/17 08:44 Dose: Not Given Fentanyl (Duragesic Patch) 12 mcg TD Q3D@0900 [facility] Last Admin: 05/04/17 08:11 Dose: 12 mcg Fentanyl Citrate (Duragesic Patch Removal) 1 removal TD Q3D@0900 [facility] Last Admin: 05/04/17 08:12 Dose: 1 removal Haloperidol Lactate (Haldol) 2.5 mg IVP Q4H PRN Last Admin: 05/05/17 03:39 Dose: 2.5 mg Ceftriaxone Sodium 1 g/ Sodium (Chloride) 100 mls @ 200 mls/hr IV Q24H [facility] Last Infusion: 05/05/17 14:25 Dose: Infused Sodium Chloride (1/2 Normal Saline) 1,000 mls @ 125 mls/hr IV .Q8H [facility] Last Admin: 05/05/17 07:50 Dose: 125 mls/hr Valproate Sodium 500 mg/ (Sodium Chloride) 105 mls @ 100 mls/hr IV Q12H [facility] Last Infusion: 05/05/17 09:00 Dose: Infused Lorazepam (Ativan Inj) 0.5 mg IVP Q4H PRN Last Admin: 05/05/17 05:08 Dose: 0.5 mg Magnesium Hydroxide (Mom) 30 ml PO DAILY PRN PRN Reason: Constipation Metoprolol Tartrate (Lopressor) 25 mg PO BIDWM [facility] Last Admin: 05/05/17 10:09 Dose: Not Given Ondansetron HCl (Zofran) 4 mg IVP Q6H PRN PRN Reason: Nausea Pantoprazole Sodium (Protonix Iv) 40 mg IVP DAILY [facility] Last Admin: 05/05/17 10:04 Dose: 40 mg Sodium Chloride (Iv Flush) 10 - 80 ml IVF PRN PRN PRN Reason: Flushing Last Admin: 05/04/17 04:41 Dose: 10 ml Results 05/06/17 04:49 05/06/17 04:49 CBC 05/05/17 Range/Units 04:04 WBC 4.3 L (4.5-11.0) T/MM3 RBC 3.40 L (4.50-5.90) M/MM3 Hgb 9.8 L (13.5-17.5) GM/DL Hct 31.1 L (41-53) % Plt Count 206 (130-400) T/MM3 Neut # (Auto) 1.7 L (1.8-7.7) T/MM3 Lymph # (Auto) 1.9 (1-4.8) T/MM3 Imperial # (Auto) 0.5 (0-0.8) T/MM3 Eos # (Auto) 0.2 (0-0.5) T/MM3 Baso # (Auto) 0.0 (0-0.2) T/MM3 Comprehensive Metabolic Panel 05/05/17 Range/Units 04:04 Sodium 144 D (134-144) MEQ/L Potassium 3.5 L D (3.6-5) MEQ/L Chloride 112 H (98-107) MEQ/L Carbon Dioxide 25 (22-30) MEQ/L BUN 10.0 D (9-20) MG/DL Creatinine 0.7 L D (0.8-1.5) MG/DL Glucose 76 (75-110) MG/DL Calcium 7.8 L (8.4-10.2) MG/DL Albumin 2.6 L (3.5-5.0) G/DL Intake and Output 05/04/17 05/05/17 05/05/17 22:59 06:59 14:59 Intake Total 1105.0 / 1105.0 1205 / 1205 Balance 1105.0 / 1105.0 1205 / 1205 Intake: IV 1105.0 / 1105.0 1205 / 1205 1/2 Ns 1,000 ml @ 125 mls 1000.0 / 1000.0 1000 / 1000 /hr IV .Q8H [facility] Rx#: [id number] Ceftriaxone 1 g In Ns 100 100 / 100 ml @ 200 mls/hr IV Q24H [facility] Rx#:[id number] Valproate IV 500 mg In Ns 105 / 105 105 / 105 100 ml @ 100 mls/hr IV Q12H [facility] Rx#:[id number] Other: Urine Color Dark Yellow # Incontinent Voids 1 1 Weight 167 lb 12.348 oz Patient Weight 05/06/17 06:59 Weight 167 lb 12.348 oz - Imaging and Cardiology Imaging & Cardiology Narrative: Date of Exam: 05/04/17 Type of Exam(s): US echo doppler complete DATE OF PROCEDURE May 04, [address] Shannan Serrano This is a two-dimensional echo with spectral Doppler, color-flow and M-mode. It was obtained in a patient with arrhythmias. Left atrial dimension is normal. Left ventricle end-diastolic dimension is normal. Left ventricle wall thickness is normal. LV systolic function is normal with ejection fraction of 55%. Right atrium is normal. Right ventricle is normal. Aortic root dimension is normal. Mitral valve is morphologically normal with trace of mitral regurgitation.. Aortic valve is a trileaflet structure with no stenosis or insufficiency. Tricuspid valve shows trace of tricuspid regurgitation with normal estimated pulmonary artery systolic pressure of 23. Pulmonary valve shows no pulmonary insufficiency. There is no pericardial effusion. IMPRESSION 1. Normal LV systolic function with ejection fraction of 55%. 2. Trace of mitral regurgitation. 3. Trace of tricuspid regurgitation with normal estimated pulmonary artery systolic pressure of 23. 4. Aortic sclerosis. 05/05/17 17:27 Assessment and Plan - Assessment and Plan (1) Tachycardia Problem details: present on admission - alternativing between a-fib with RVR, sinus tachycarida and SVT. Current visit: Yes Status: Acute - Assessment and Plan 05/04/17 Tachycardia Problem details: present on admission - alternativing between a-fib with RVR, sinus tachycarida and SVT. Current visit: Yes Status: Acute Metoprolol 25mg po BID TSH, Mag Echocardiogram Thank you for allowing us to participate in the care of this patient 05/05/17 No further dysrhythmia or tachycardia on Telemetry, continue to monitor. Hospital Course Summary Disclaimer: The visit summary below is not to be considered part of the above Progress Note. Hospital Course: Assessment SIRS, present on admission, acute. Nausea and vomiting, present on admission, acute. Dysrhythmic tachycardia, present on admission, acute. Hypernatremia with hyperosmolality, present on admission, acute. Dehydration, present on admission, acute. Constipation with fecal impaction, present on admission, acute on chronic. Alzheimer's disease and dementia with behaviors, present on admission, acute on chronic. Hypertension - patient hypotensive on admission. CAD, chronic. Chronic pain. Gait instability with frequent falls. Psychiatric illness - bipolar disorder, major depressive disorder, and schizophrenia, chronic. Plan - 05/03/17 (Admission - [facility]). Admit to inpatient status to CCU under the care of Dr. Serrano for close cardiac and respiratory monitoring. Dr. Ragsdale consulted for cardiac evaluation and expertise. Unknown history of arrhythmia. EKGs concerning for SVT vs. A-fib with RVR vs. Sinus tach. Discussed patient case with MADDI Amanda. Patient given metoprolol 5mg IV in ED with some rate improvement. Currently patient is rate controlled but remains dysrhythmic. Continue to monitor closely on telemetry. TSH within normal limits. Magnesium stable. Potassium stable. SIRS markers met including tachycardia, tachypnea, hyperglycemia in non- diabetic. Concerning for sepsis given hypotension, cardiac dysfunction and borderline lactate at 1.9. No current infectious source known. UA unremarkable. CXR results pending. Procalcitonin pending. Will obtain serial lactates and blood cultures x 2. Initiate Rocephin 1g IV x 24 hours for empiric treatment. If patient remains afebrile without leukocytosis or evidence of infection, consider discontinuation of antibiotics. History of nausea/vomiting since 04/27. CBC stable without leukocytosis or known fever. Hypernatremia with hyperosmolality present on admission. Patient given 2L NS in ED. Will continue NS at 125cc/hr given dehydration and current poor oral intake. Will maintain clear liquid diet as able. Will obtain speech therapy evaluation in AM for dysphagia. Monitor I&O closely as well as daily weights. Zofran as needed for nausea/vomiting. Lactate within normal limits. LFTs stable. CT abdomen/pelvis obtained in ED revealed no acute changes or disease, scattered diverticulosis without evidence of diverticulitis, moderate feces in rectal vault and no obstruction, small left lower lobe effusion and hiatal hernia. Given concern for sepsis and dysrhythmia as well as effusion noted on CT, will obtain CXR now for further complete evaluation. Encourage incentive spirometry as able. Bruise to right hip noted. No reported history of trauma. No apparent tenderness with palpation. CT abdomen/pelvis noted no acute bony changes or fracture. If apparent pain with movement or other changes are noted, may consider obtaining separate imaging of hip. Will hold off for now. Given concern for possible blood in vomit per NH, will initiate Protonix 40mg IV daily for GI protection. Will assess for occult blood in emesis. SCDs for DVT prophylaxis. Will discuss possible Lovenox or other anticoagulant with Dr. Serrano for additional prophylaxis. Continue home medications. Haldol and ativan for agitation and aggression. Baseline behaviors are unknown. May consider psychiatric consult if behaviors continue. Continue with bowel motivation as needed given history of constipation and current fecal impaction. Provide safe and supportive environment. DNR documentation noted in chart and verified by Dr. Serrano with patient's guardian. Patient is expected to stay > 2 over nights and upon discharge, care will be returned to his PCP, Dr. Decker. <Jaron Ragsdale - Last Filed: 05/07/17 13:03> Exam Vital signs: Temperature 97.2 F 05/07/17 12:08 Pulse Rate 68 05/07/17 12:08 Respiratory Rate 14 05/07/17 12:08 Blood Pressure 122/68 05/07/17 12:08 Pulse Oximetry 98 05/07/17 12:08 Results 05/07/17 05:47 05/07/17 05:47 CBC 05/07/17 Range/Units 05:47 WBC 3.3 L (4.5-11.0) T/MM3 RBC 3.84 L (4.50-5.90) M/MM3 Hgb 11.0 L (13.5-17.5) GM/DL Hct 33.9 L (41-53) % Plt Count 225 (130-400) T/MM3 Comprehensive Metabolic Panel 05/07/17 Range/Units 05:47 Sodium 143 (134-144) MEQ/L Potassium 3.7 (3.6-5) MEQ/L Chloride 110 H (98-107) MEQ/L Carbon Dioxide 25 (22-30) MEQ/L BUN 5.0 L (9-20) MG/DL Creatinine 0.7 L (0.8-1.5) MG/DL Glucose 77 (75-110) MG/DL Calcium 8.0 L (8.4-10.2) MG/DL Albumin 2.9 L (3.5-5.0) G/DL Intake and Output 05/06/17 05/07/17 05/07/17 22:59 06:59 14:59 Intake Total 580.833 / 580.833 120 / 120 Balance 580.833 / 580.833 120 / 120 Intake: IV 530.833 / 530.833 NS with KCL 20 mEq 1,000 530.833 / 530.833 ml @ 50 mls/hr IV .Q20H [facility] Rx#:[id number] Oral 50 / 50 120 / 120 Other: Urine Appearance Clear Urine Color Yellow Yellow Urine Odor Strong Normal # Voids 1 1 # Incontinent Voids 2 2 Weight 74.6 kg Patient Weight 05/08/17 06:59 Weight 74.6 kg Assessment and Plan - Assessment and Plan (1) Tachycardia Problem details: present on admission - alternativing between a-fib with RVR, sinus tachycarida and SVT. Current visit: Yes Status: Acute - Attestation Attestation Narrative: 05/07/17 13:03 Recommendation After examining the patient I agree with the above assessment. I am involved in the formulation of the patient's plan of care. Hospital Course Summary Disclaimer: The visit summary below is not to be considered part of the above Progress Note.
--- NOTE | 2017-05-05 19:46 | Progress Note ---
- Date 05/05/17 Subjective: Sonido remains agitated and has been striking out at nurses and other caregivers. Suppository was given earlier today with subsequent loose brown stool which was heme positive although nursing reports no overt rectal bleeding. He is incontinent of urine. Patient does not answer any questions coherently. Nursing reports no oral intake and that he refuses all medications. Objective Vital signs: Temperature 96.9 F 05/05/17 16:06 Pulse Rate 67 05/05/17 16:06 Respiratory Rate 18 05/05/17 16:06 Blood Pressure 135/65 05/05/17 16:06 Pulse Oximetry 96 05/05/17 16:06 I/O 2107/75+ incontinent; weight up almost 4 kg from admission Drowsy, mumbled speech Strikes out when I attempt to examine him, arms must be restrained to permit auscultation Eyes closed Poor inspiratory effort, anterior breath sounds clear Regular rhythm, S1-S2 Abdomen is firm, nontender, and bowel sounds are diminished Without edema Height/Weight/BMI: Weight 76.1 kg Results - Labs CBC & Chem 7: 05/05/17 04:04 05/05/17 04:04 Labs: Magnesium 1.8, phosphorus 3.5, albumin 2.6 Microbiology Results: Microbiology 05/03/17 14:58 Peripheral/Iv Start Blood Culture - Preliminary No Growth After 2 Days 05/03/17 14:42 Peripheral/Iv Start Blood Culture - Preliminary No Growth After 2 Days 05/03/17 14:30 Urine, Cath Straight Urine Culture - Preliminary No Growth After 1 Day - ECG Data Tracing #1 I reviewed this ECG and interpreted as documented below: (EKG today with sinus rhythm, rate 70, low voltage, possible posterior inferior IN and diffuse T-wave flattening) - Imaging and Cardiology echocardiogram Additional comments: Ejection fraction 55%, no significant valvular disease, PAB 23 Assessment and Plan (1) Tachycardia Problem details: present on admission - alternativing between a-fib with RVR, sinus tachycarida and SVT. Current visit: Yes Status: Acute (2) Fecal impaction in rectum Problem details: present on admission. Current visit: Yes Status: Acute (3) Hyperosmolality with hypernatremia Problem details: present on admission. Current visit: Yes Status: Acute (4) Nausea and vomiting Problem details: present on admission. Current visit: Yes Status: Resolved Assessment and Plan: Assessment A. fib-RVR/sinus tach/SVT Dysrhythmic tachycardia, POA, acute-resolved. Nausea and vomiting, POA, acute-resolved. Hypernatremia with hyperosmolality, POA, acute. Hypotension, POA-resolved Normocytic anemia, following hydration SIRS-POA Dehydration, POA, acute. Constipation with fecal impaction, POA, acute on chronic. Alzheimer's disease and dementia with behaviors, POA, acute on chronic. Hypertension -chronic. CAD, chronic. Chronic pain. Gait instability with frequent falls. Psychiatric illness - bipolar disorder, major depressive disorder, and schizophrenia, chronic. Plan Rhythm/rate remained stable. Cardiology recommends low-dose beta lalit. Echocardiogram unremarkable.. Continues to refuse all oral intake/medications. Depakote converted to IV administration yesterday-continue if supply available. [facility] Dr[facility] Alfaro, transfer when medically stable. Sodium has dropped 155-144; convert to low-volume normal saline with potassium ( potassium 3.5 today) Hemoglobin has dropped progressively to 13.6-10.7-9.8; likely due to hydration however no baseline values available prior to 05/02 at nursing facility. Hemoccult positive 1 but no gross blood loss and has had multiple stools after fecal impaction and several suppositories. KUB in a.m. to assess fecal volume. If hemoglobin relatively stable overnight and will transfer to inpatient psychiatric care. If hemoglobin drops further will need to discuss with patient's guardian to determine course of care. No ongoing nausea/vomiting reported by staff; multiple bowel movements since admission. Empiric treatment initiated with ceftriaxone on admission, no clear indication of infection. Blood cultures negative after 48 hours-discontinue Rocephin, urine culture also negative after 24 hours Nursing provides all history. Hospital Course Summary Disclaimer: The visit summary below is not to be considered part of the above Progress Note. Hospital Course: Assessment SIRS, present on admission, acute. Nausea and vomiting, present on admission, acute. Dysrhythmic tachycardia, present on admission, acute. Hypernatremia with hyperosmolality, present on admission, acute. Dehydration, present on admission, acute. Constipation with fecal impaction, present on admission, acute on chronic. Alzheimer's disease and dementia with behaviors, present on admission, acute on chronic. Hypertension - patient hypotensive on admission. CAD, chronic. Chronic pain. Gait instability with frequent falls. Psychiatric illness - bipolar disorder, major depressive disorder, and schizophrenia, chronic. Plan - [facility]17 [facility] Admit to inpatient status to CCU under the care of Dr. Serrano for close cardiac and respiratory monitoring. Dr. Ragsdale consulted for cardiac evaluation and expertise. Unknown history of arrhythmia. EKGs concerning for SVT vs. A-fib with RVR vs. Sinus tach. Discussed patient case with MADDI Amanda. Patient given metoprolol 5mg IV in ED with some rate improvement. Currently patient is rate controlled but remains dysrhythmic. Continue to monitor closely on telemetry. TSH within normal limits. Magnesium stable. Potassium stable. SIRS markers met including tachycardia, tachypnea, hyperglycemia in non- diabetic. Concerning for sepsis given hypotension, cardiac dysfunction and borderline lactate at 1.9. No current infectious source known. UA unremarkable. CXR results pending. Procalcitonin pending. Will obtain serial lactates and blood cultures x 2. Initiate Rocephin 1g IV x 24 hours for empiric treatment. If patient remains afebrile without leukocytosis or evidence of infection, consider discontinuation of antibiotics. History of nausea/vomiting since 04/27. CBC stable without leukocytosis or known fever. Hypernatremia with hyperosmolality present on admission. Patient given 2L NS in ED. Will continue NS at 125cc/hr given dehydration and current poor oral intake. Will maintain clear liquid diet as able. Will obtain speech therapy evaluation in AM for dysphagia. Monitor I&O closely as well as daily weights. Zofran as needed for nausea/vomiting. Lactate within normal limits. LFTs stable. CT abdomen/pelvis obtained in ED revealed no acute changes or disease, scattered diverticulosis without evidence of diverticulitis, moderate feces in rectal vault and no obstruction, small left lower lobe effusion and hiatal hernia. Given concern for sepsis and dysrhythmia as well as effusion noted on CT, will obtain CXR now for further complete evaluation. Encourage incentive spirometry as able. Bruise to right hip noted. No reported history of trauma. No apparent tenderness with palpation. CT abdomen/pelvis noted no acute bony changes or fracture. If apparent pain with movement or other changes are noted, may consider obtaining separate imaging of hip. Will hold off for now. Given concern for possible blood in vomit per NH, will initiate Protonix 40mg IV daily for GI protection. Will assess for occult blood in emesis. SCDs for DVT prophylaxis. Will discuss possible Lovenox or other anticoagulant with Dr. Serrano for additional prophylaxis. Continue home medications. Haldol and ativan for agitation and aggression. Baseline behaviors are unknown. May consider psychiatric consult if behaviors continue. Continue with bowel motivation as needed given history of constipation and current fecal impaction. Provide safe and supportive environment. DNR documentation noted in chart and verified by Dr. Serrano with patient's guardian. Patient is expected to stay > 2 over nights and upon discharge, care will be returned to his PCP, Dr. Decker. 05/04/17 Rhythm/rate remained stable. Cardiology consultation initiated. Echocardiogram pending. Has received fluids since admission, sodium climbing-converted to half-normal saline. Poor oral intake, refusing oral meds. Depakote converted to IV administration, anticipate psychiatric consultation, generations evaluation. No ongoing nausea/vomiting reported by staff; multiple bowel movements since admission. Empiric treatment initiated with ceftriaxone on admission, no clear indication of infection. Cultures negative to date-if blood cultures negative tomorrow will discontinue antibiotics. SIRS criteria can largely be explained by dehydration/tachyarrhythmias. Stable to transfer out of ICU. 05/05/17 Rhythm/rate remained stable. Cardiology recommends low-dose beta lalit. Echocardiogram unremarkable.. Continues to refuse all oral intake/medications. Depakote converted to IV administration yesterday-continue if supply available. [facility] Dr. Alfaro, transfer when medically stable. Sodium has dropped 155-144; convert to low-volume normal saline with potassium ( potassium 3.5 today) Hemoglobin has dropped progressively to 13.6-10.7-9.8; likely due to hydration however no baseline values available prior to 05/02 at nursing facility. Hemoccult positive 1 but no gross blood loss and has had multiple stools after fecal impaction and several suppositories. KUB in a.m. to assess fecal volume. If hemoglobin relatively stable overnight and will transfer to inpatient psychiatric care. If hemoglobin drops further will need to discuss with patient's guardian to determine course of care. No ongoing nausea/vomiting reported by staff; multiple bowel movements since admission. Empiric treatment initiated with ceftriaxone on admission, no clear indication of infection. Blood cultures negative after 48 hours-discontinue Rocephin, urine culture also negative after 24 hours
[2017-05-05] MEDS: NS with KCL 20 mEq 1,000 ML IV SCH (21:08)
[2017-05-06] MEDS: HALOPERIDOL 5 MG/ML INJECTION IVP PRN (02:12)
[2017-05-06] MEDS ORDERED: NS FLUSH BAG 500ml IV PRN (05:56)
[2017-05-06] MEDS: VALPROATE IV 500 MG in NS 100 ML IV SCH (06:14)
[2017-05-06] MEDS: SALINE FLUSH 10ml SYRINGE IVF PRN (06:15)
[2017-05-06] MEDS: PANTOPRAZOLE 40 MG INJECTION IVP SCH (08:28)
--- NOTE | 2017-05-06 09:11 | XRay Report ---
Indication: fecal impaction PROCEDURE: XR KUB: Encounter: Initial Comparison: CT abdomen dated May 03, 2017 Findings: The visualized lung bases are clear. The bowel gas pattern is nonobstructive and nonspecific. Gas is seen in nondilated small and large bowel. No significant colonic stool burden. The rectosigmoid area is not imaged. The bony structures are grossly unremarkable. Impression: Nonobstructive nonspecific bowel gas pattern. .
[2017-05-06] MEDS ORDERED: HALOPERIDOL 5 MG/ML INJECTION IVP PRN (14:40)
--- NOTE | 2017-05-06 16:43 | Progress Note ---
<Nuvia Alberts - Last Filed: 05/06/17 18:48> - Date 05/06/17 Subjective: Patient seen lying in bed. He is alert, but is unable to follow commands. He does try to talk but speech is unintelligible. Hasn't eaten anything yesterday or today. Refusing to drink as well today. Yesterday he slept most of the day. TOday he has been a bit more alert, but still sleeping a lot. Refusing meds. Objective Vital signs: Temperature 96.3 F L 05/06/17 11:26 Pulse Rate 85 05/06/17 11:26 Respiratory Rate 22 05/06/17 11:26 Blood Pressure 111/75 05/06/17 11:26 Pulse Oximetry 98 05/06/17 11:26 Height/Weight/BMI: Weight 76.4 kg - Constitutional Present: no acute distress, well nourished, well developed - Routine Respiratory Exam Present: decreased breath sounds, diminished air movement. Absent: wheezes - Routine Cardiovascular Exam Present: RRR. Absent: murmur - Routine Abdominal Exam Present: soft, normoactive bowel sounds, non distended. Absent: tenderness - Routine Extremities Exam Present: no edema, normal capillary refill - Routine Skin Exam Present: dry, warm - Routine Neurological Exam Present: altered mental status. Absent: normal speech - Routine Lymphatic Exam Lymphatic: Absent: adenopathy - Routine Psychiatric Exam Present: unable to assess Results - Labs CBC & Chem 7: 05/06/17 04:49 05/06/17 04:49 Microbiology Results: Microbiology 05/03/17 14:58 Peripheral/Iv Start Blood Culture - Preliminary No Growth After 3 Days 05/03/17 14:42 Peripheral/Iv Start Blood Culture - Preliminary No Growth After 3 Days 05/03/17 14:30 Urine, Cath Straight Urine Culture - Preliminary No Growth After 1 Day Assessment and Plan (1) Tachycardia Problem details: present on admission - alternativing between a-fib with RVR, sinus tachycarida and SVT. Current visit: Yes Status: Acute (2) Fecal impaction in rectum Problem details: present on admission. Current visit: Yes Status: Acute (3) Hyperosmolality with hypernatremia Problem details: present on admission. Current visit: Yes Status: Acute (4) Nausea and vomiting Problem details: present on admission. Current visit: Yes Status: Resolved Assessment and Plan: Assessment A. fib-RVR/sinus tach/SVT - currently in NSR Dysrhythmic tachycardia, POA, acute-resolved. Nausea and vomiting, POA, acute-resolved. Hypernatremia with hyperosmolality, POA, acute. Hypotension, POA-resolved Normocytic anemia, following hydration SIRS-POA Dehydration, POA, acute. Constipation with fecal impaction, POA, acute on chronic. Alzheimer's disease and dementia with behaviors, POA, acute on chronic. Hypertension -chronic. CAD, chronic. Chronic pain. Gait instability with frequent falls. Psychiatric illness - bipolar disorder, major depressive disorder, and schizophrenia, chronic. Plan Continues to refuse all oral intake/medications. Continue IVF's. Hemoccult positive 1 but no gross blood loss and has had multiple stools after fecal impaction and several suppositories. KUB shows no significant stool load Hemoglobin stable. No ongoing nausea/vomiting reported by staff; multiple bowel movements since admission. Recommend aggressive bowel regimen be ordered on DC to NH given frequent fecal impactions over the past few mos. Nursing provides all history. Spoke with Trever Mcdonnell re: patient's condition. He does report patient has had several falls at [facility] over the past month. Will check CT head. If CT is neg, and patient is not taking in p.o., will need to discuss further wishes in re: to possible hospice. Trever is open to this. He would like to have a meeting with himself and Columba (co-guardian) with the attending after CT is resulted to discuss opts. Trever Mcdonnell - -co-guardian (and patient's brother). Hospital Course Summary Disclaimer: The visit summary below is not to be considered part of the above Progress Note. Hospital Course: Assessment SIRS, present on admission, acute. Nausea and vomiting, present on admission, acute. Dysrhythmic tachycardia, present on admission, acute. Hypernatremia with hyperosmolality, present on admission, acute. Dehydration, present on admission, acute. Constipation with fecal impaction, present on admission, acute on chronic. Alzheimer's disease and dementia with behaviors, present on admission, acute on chronic. Hypertension - patient hypotensive on admission. CAD, chronic. Chronic pain. Gait instability with frequent falls. Psychiatric illness - bipolar disorder, major depressive disorder, and schizophrenia, chronic. Plan - 05/03/17 (Admission - [facility] Admit to inpatient status to CCU under the care of Dr. Serrano for close cardiac and respiratory monitoring. Dr. Ragsdale consulted for cardiac evaluation and expertise. Unknown history of arrhythmia. EKGs concerning for SVT vs. A-fib with RVR vs. Sinus tach. Discussed patient case with MADDI Amanda. Patient given metoprolol 5mg IV in ED with some rate improvement. Currently patient is rate controlled but remains dysrhythmic. Continue to monitor closely on telemetry. TSH within normal limits. Magnesium stable. Potassium stable. SIRS markers met including tachycardia, tachypnea, hyperglycemia in non- diabetic. Concerning for sepsis given hypotension, cardiac dysfunction and borderline lactate at 1.9. No current infectious source known. UA unremarkable. CXR results pending. Procalcitonin pending. Will obtain serial lactates and blood cultures x 2. Initiate Rocephin 1g IV x 24 hours for empiric treatment. If patient remains afebrile without leukocytosis or evidence of infection, consider discontinuation of antibiotics. History of nausea/vomiting since 04/27. CBC stable without leukocytosis or known fever. Hypernatremia with hyperosmolality present on admission. Patient given 2L NS in ED. Will continue NS at 125cc/hr given dehydration and current poor oral intake. Will maintain clear liquid diet as able. Will obtain speech therapy evaluation in AM for dysphagia. Monitor I&O closely as well as daily weights. Zofran as needed for nausea/vomiting. Lactate within normal limits. LFTs stable. CT abdomen/pelvis obtained in ED revealed no acute changes or disease, scattered diverticulosis without evidence of diverticulitis, moderate feces in rectal vault and no obstruction, small left lower lobe effusion and hiatal hernia. Given concern for sepsis and dysrhythmia as well as effusion noted on CT, will obtain CXR now for further complete evaluation. Encourage incentive spirometry as able. Bruise to right hip noted. No reported history of trauma. No apparent tenderness with palpation. CT abdomen/pelvis noted no acute bony changes or fracture. If apparent pain with movement or other changes are noted, may consider obtaining separate imaging of hip. Will hold off for now. Given concern for possible blood in vomit per NH, will initiate Protonix 40mg IV daily for GI protection. Will assess for occult blood in emesis. SCDs for DVT prophylaxis. Will discuss possible Lovenox or other anticoagulant with Dr. Serrano for additional prophylaxis. Continue home medications. Haldol and ativan for agitation and aggression. Baseline behaviors are unknown. May consider psychiatric consult if behaviors continue. Continue with bowel motivation as needed given history of constipation and current fecal impaction. Provide safe and supportive environment. DNR documentation noted in chart and verified by Dr. Serrano with patient's guardian. Patient is expected to stay > 2 over nights and upon discharge, care will be returned to his PCP, Dr. Decker. 05/04/17 Rhythm/rate remained stable. Cardiology consultation initiated. Echocardiogram pending. Has received fluids since admission, sodium climbing-converted to half-normal saline. Poor oral intake, refusing oral meds. Depakote converted to IV administration, anticipate psychiatric consultation, generations evaluation. No ongoing nausea/vomiting reported by staff; multiple bowel movements since admission. Empiric treatment initiated with ceftriaxone on admission, no clear indication of infection. Cultures negative to date-if blood cultures negative tomorrow will discontinue antibiotics. SIRS criteria can largely be explained by dehydration/tachyarrhythmias. Stable to transfer out of ICU. 05/05/17 Rhythm/rate remained stable. Cardiology recommends low-dose beta lalit. Echocardiogram unremarkable.. Continues to refuse all oral intake/medications. Depakote converted to IV administration yesterday-continue if supply available. Evaluated for admission to [facility]-discussed with Dr. Alfaro, transfer when medically stable. Sodium has dropped 155-144; convert to low-volume normal saline with potassium ( potassium 3.5 today) Hemoglobin has dropped progressively to 13.6-10.7-9.8; likely due to hydration however no baseline values available prior to 05/02 at nursing facility. Hemoccult positive 1 but no gross blood loss and has had multiple stools after fecal impaction and several suppositories. KUB in a.m. to assess fecal volume. If hemoglobin relatively stable overnight and will transfer to inpatient psychiatric care. If hemoglobin drops further will need to discuss with patient's guardian to determine course of care. No ongoing nausea/vomiting reported by staff; multiple bowel movements since admission. Empiric treatment initiated with ceftriaxone on admission, no clear indication of infection. Blood cultures negative after 48 hours-discontinue Rocephin, urine culture also negative after 24 hours 05/06/17 Continues to refuse all oral intake/medications. Continue IVF's. Hemoccult positive 1 but no gross blood loss and has had multiple stools after fecal impaction and several suppositories. KUB shows no significant stool load Hemoglobin stable. No ongoing nausea/vomiting reported by staff; multiple bowel movements since admission. Recommend aggressive bowel regimen be ordered on DC to NH given frequent fecal impactions over the past few mos. Nursing provides all history. Spoke with Trever Mcdonnell re: patient's condition. He does report patient has had several falls at [facility] over the past month. Will check CT head. If CT is neg, and patient is not taking in p.o., will need to discuss further wishes in re: to possible hospice. Trever is open to this. He would like to have a meeting with himself and Columba (co-guardian) with the attending after CT is resulted to discuss opts. Trever Mcdonnell - -co-guardian (and patient's brother). <Alla Vance - Last Filed: 05/06/17 19:56> - Date 05/06/17 Results - Labs CBC & Chem 7: 05/06/17 04:49 05/06/17 04:49 Assessment and Plan (1) Tachycardia Problem details: present on admission - alternativing between a-fib with RVR, sinus tachycarida and SVT. Current visit: Yes Status: Acute (2) Fecal impaction in rectum Problem details: present on admission. Current visit: Yes Status: Acute (3) Hyperosmolality with hypernatremia Problem details: present on admission. Current visit: Yes Status: Acute Assessment and Plan: I have independently evaluated and examined this patient. I reviewed the chart, the patient's history, and the MOTION PICTURE PROJECTIONIST/PA's documented findings as above. We discussed and formulated the assessment and plan as above with additions as below: Catarino is seen early this morning at which time he was unresponsive to voice or exam. Nursing reports that he had been oriented to self only and was easily agitated overnight but review of medications indicated Ativan had not been given and only a single dose of Haldol 2.5 mg was given just after 2 AM. Respirations were nonlabored although Alec-Miranda pattern was present, breath sounds were clear anteriorly with poor airflow. Patient did not withdraw his hands when I tickle the hands and I did not stimulate him more actively due to extreme agitation previously demonstrated. Later in the day the patient was moving his arms/legs spontaneously but continues to refuse to eat. CT head was obtained after speaking with his brother/guardian and co-guardian Ame Alexander. CT head reviewed by myself demonstrating atrophy but no evidence of acute trauma or hemorrhage. KUB also reviewed by myself demonstrating nonspecific bowel gas pattern. Transfer to [facility] on hold today due to extreme sedation. Reassess tomorrow. Check NH3 and ABG with morning labs. Discussed with [facility] [place] coordinator/case management. DVT Prophylaxis: SCD's Resuscitation Status: Do Not Resuscitate Hospital Course Summary Disclaimer: The visit summary below is not to be considered part of the above Progress Note.
--- NOTE | 2017-05-06 17:48 | Cardiology Progress Note ---
<Treasure Carrillo - Last Filed: 05/06/17 17:45> Subjective Principal diagnosis: arrhythmia Interval history: Sonido is seen in follow up for arrhythmia. He is in his bed on the Medical unit, he is awake but does not respond questions and just looks at Dr Ragsdale. Exam Vital signs: Temperature 97.9 F 05/06/17 17:40 Pulse Rate 78 05/06/17 17:40 Respiratory Rate 16 05/06/17 17:40 Blood Pressure 142/90 H 05/06/17 17:40 Pulse Oximetry 98 05/06/17 17:40 - Constitutional no acute distress, well nourished, cooperative - Routine HEENT Exam Head: Present: normocephalic ENT: Present: mucous membranes moist - Routine Neck Exam Absent: JVD, carotid bruit - Routine Chest/Breast/Axilla Exam Chest wall: Absent: tenderness - Routine Respiratory Exam Present: CTA bilaterally. Absent: rales, crackles - Routine Cardiovascular Exam Present: no murmur, irregular rhythm - Routine Abdominal Exam Present: soft, normoactive bowel sounds - Routine Extremities Exam Present: no edema - Routine Skin Exam Present: intact, dry, warm - Routine Neurological Exam Present: alert, altered mental status. Absent: oriented X3 Results 05/06/17 04:49 05/06/17 04:49 CBC 05/06/17 Range/Units 04:49 WBC 4.0 L (4.5-11.0) T/MM3 RBC 3.78 L (4.50-5.90) M/MM3 Hgb 11.0 L D (13.5-17.5) GM/DL Hct 33.3 L (41-53) % Plt Count 244 (130-400) T/MM3 Neut # (Auto) 2.1 (1.8-7.7) T/MM3 Lymph # (Auto) 1.4 (1-4.8) T/MM3 [place] # (Auto) 0.3 (0-0.8) T/MM3 Eos # (Auto) 0.2 (0-0.5) T/MM3 Baso # (Auto) 0.0 (0-0.2) T/MM3 Comprehensive Metabolic Panel 05/06/17 Range/Units 04:49 Sodium 143 (134-144) MEQ/L Potassium 4.1 (3.6-5) MEQ/L Chloride 111 H (98-107) MEQ/L Carbon Dioxide 23 (22-30) MEQ/L BUN 7.0 L (9-20) MG/DL Creatinine 0.7 L (0.8-1.5) MG/DL Glucose 73 L (75-110) MG/DL Calcium 8.1 L (8.4-10.2) MG/DL Intake and Output 05/06/17 05/06/17 05/06/17 06:59 14:59 22:59 Intake Total 469.167 / 469.167 105 / 105 Balance 469.167 / 469.167 105 / 105 Intake: IV 469.167 / 469.167 105 / 105 NS with KCL 20 mEq 1,000 469.167 / 469.167 0 / 0 ml @ 50 mls/hr IV .Q20H [facility] Rx#:[id number] Valproate IV 500 mg In Ns 105 / 105 100 ml @ 100 mls/hr IV Q12H [facility] Rx#:[id number] Other: # Incontinent Voids 1 Weight 168 lb 6.931 oz Patient Weight 05/07/17 06:59 Weight 168 lb 6.931 oz Abnormal Lab Results 05/06/17 05/06/17 04:49 04:49 WBC 4.0 L RBC 3.78 L Hgb 11.0 L D Hct 33.3 L MCV 88.1 MCH 29.1 MCHC 33.0 RDW Std Deviation 41.5 Plt Count 244 MPV 10.2 Immature Gran % (Auto) 0.0 Neut % (Auto) 51.0 Lymph % (Auto) 35.4 [place] % (Auto) 7.9 Eos % (Auto) 5.2 H Baso % (Auto) 0.5 Neut # (Auto) 2.1 Lymph # (Auto) 1.4 [place] # (Auto) 0.3 Eos # (Auto) 0.2 Baso # (Auto) 0.0 Abs Immat Gran (auto) 0.00 Turbidity < 20 Sodium 143 Potassium 4.1 Chloride 111 H Carbon Dioxide 23 Anion Gap 9 BUN 7.0 L Creatinine 0.7 L GFR Calculation 114 BUN/Creatinine Ratio 10 Glucose 73 L Calculated Osmolality 272 Calcium 8.1 L Icterus Index < 2 Specimen Hemolysis < 15 - Imaging and Cardiology Imaging & Cardiology Narrative: Date of Exam: 05/06/17 Ordering Provider: Alla Vance MD Type of Exam(s): XR KUB Reason for Exam(s): fecal impaction Indication: fecal impaction PROCEDURE: XR KUB: Encounter: Initial Comparison: CT abdomen dated May 03, 2017 Findings: The visualized lung bases are clear. The bowel gas pattern is nonobstructive and nonspecific. Gas is seen in nondilated small and large bowel. No significant colonic stool burden. The rectosigmoid area is not imaged. The bony structures are grossly unremarkable. Impression: Nonobstructive nonspecific bowel gas pattern. 05/06/17 17:50 Assessment and Plan - Assessment and Plan (1) Tachycardia Problem details: present on admission - alternativing between a-fib with RVR, sinus tachycarida and SVT. Current visit: Yes Status: Acute - Assessment and Plan Remains unchanged from Cardiac Standpoint. Telemetry without SVT or A Fib, continue to monitor. Hospital Course Summary Disclaimer: The visit summary below is not to be considered part of the above Progress Note. Hospital Course: Assessment SIRS, present on admission, acute. Nausea and vomiting, present on admission, acute. Dysrhythmic tachycardia, present on admission, acute. Hypernatremia with hyperosmolality, present on admission, acute. Dehydration, present on admission, acute. Constipation with fecal impaction, present on admission, acute on chronic. Alzheimer's disease and dementia with behaviors, present on admission, acute on chronic. Hypertension - patient hypotensive on admission. CAD, chronic. Chronic pain. Gait instability with frequent falls. Psychiatric illness - bipolar disorder, major depressive disorder, and schizophrenia, chronic. Plan - 05/03/17 (Admission - [facility]). Admit to inpatient status to CCU under the care of Dr. Serrano for close cardiac and respiratory monitoring. Dr. Ragsdale consulted for cardiac evaluation and expertise. Unknown history of arrhythmia. EKGs concerning for SVT vs. A-fib with RVR vs. Sinus tach. Discussed patient case with MADDI Amanda. Patient given metoprolol 5mg IV in ED with some rate improvement. Currently patient is rate controlled but remains dysrhythmic. Continue to monitor closely on telemetry. TSH within normal limits. Magnesium stable. Potassium stable. SIRS markers met including tachycardia, tachypnea, hyperglycemia in non- diabetic. Concerning for sepsis given hypotension, cardiac dysfunction and borderline lactate at 1.9. No current infectious source known. UA unremarkable. CXR results pending. Procalcitonin pending. Will obtain serial lactates and blood cultures x 2. Initiate Rocephin 1g IV x 24 hours for empiric treatment. If patient remains afebrile without leukocytosis or evidence of infection, consider discontinuation of antibiotics. History of nausea/vomiting since 04/27. CBC stable without leukocytosis or known fever. Hypernatremia with hyperosmolality present on admission. Patient given 2L NS in ED. Will continue NS at 125cc/hr given dehydration and current poor oral intake. Will maintain clear liquid diet as able. Will obtain speech therapy evaluation in AM for dysphagia. Monitor I&O closely as well as daily weights. Zofran as needed for nausea/vomiting. Lactate within normal limits. LFTs stable. CT abdomen/pelvis obtained in ED revealed no acute changes or disease, scattered diverticulosis without evidence of diverticulitis, moderate feces in rectal vault and no obstruction, small left lower lobe effusion and hiatal hernia. Given concern for sepsis and dysrhythmia as well as effusion noted on CT, will obtain CXR now for further complete evaluation. Encourage incentive spirometry as able. Bruise to right hip noted. No reported history of trauma. No apparent tenderness with palpation. CT abdomen/pelvis noted no acute bony changes or fracture. If apparent pain with movement or other changes are noted, may consider obtaining separate imaging of hip. Will hold off for now. Given concern for possible blood in vomit per NH, will initiate Protonix 40mg IV daily for GI protection. Will assess for occult blood in emesis. SCDs for DVT prophylaxis. Will discuss possible Lovenox or other anticoagulant with Dr. Serrano for additional prophylaxis. Continue home medications. Haldol and ativan for agitation and aggression. Baseline behaviors are unknown. May consider psychiatric consult if behaviors continue. Continue with bowel motivation as needed given history of constipation and current fecal impaction. Provide safe and supportive environment. DNR documentation noted in chart and verified by Dr. Serrano with patient's guardian. Patient is expected to stay > 2 over nights and upon discharge, care will be returned to his PCP, Dr. Decker. <Jaron Ragsdale - Last Filed: 05/07/17 13:08> Exam Vital signs: Temperature 97.2 F 05/07/17 12:08 Pulse Rate 68 05/07/17 12:08 Respiratory Rate 14 05/07/17 12:08 Blood Pressure 122/68 05/07/17 12:08 Pulse Oximetry 98 05/07/17 12:08 Results 05/07/17 05:47 05/07/17 05:47 CBC 05/07/17 Range/Units 05:47 WBC 3.3 L (4.5-11.0) T/MM3 RBC 3.84 L (4.50-5.90) M/MM3 Hgb 11.0 L (13.5-17.5) GM/DL Hct 33.9 L (41-53) % Plt Count 225 (130-400) T/MM3 Comprehensive Metabolic Panel 05/07/17 Range/Units 05:47 Sodium 143 (134-144) MEQ/L Potassium 3.7 (3.6-5) MEQ/L Chloride 110 H (98-107) MEQ/L Carbon Dioxide 25 (22-30) MEQ/L BUN 5.0 L (9-20) MG/DL Creatinine 0.7 L (0.8-1.5) MG/DL Glucose 77 (75-110) MG/DL Calcium 8.0 L (8.4-10.2) MG/DL Albumin 2.9 L (3.5-5.0) G/DL Intake and Output 05/06/17 05/07/17 05/07/17 22:59 06:59 14:59 Intake Total 580.833 / 580.833 120 / 120 Balance 580.833 / 580.833 120 / 120 Intake: IV 530.833 / 530.833 NS with KCL 20 mEq 1,000 530.833 / 530.833 ml @ 50 mls/hr IV .Q20H [facility] Rx#:[id number] Oral 50 / 50 120 / 120 Other: Urine Appearance Clear Urine Color Yellow Yellow Urine Odor Strong Normal # Voids 1 1 # Incontinent Voids 2 2 Weight 74.6 kg Patient Weight 05/08/17 06:59 Weight 74.6 kg Assessment and Plan - Assessment and Plan (1) Tachycardia Problem details: present on admission - alternativing between a-fib with RVR, sinus tachycarida and SVT. Current visit: Yes Status: Acute - Attestation Attestation Narrative: 05/07/17 13:07 Recommendation After examining the patient I agree with the above assessment. I am involved in the formulation of the patient's plan of care. Hospital Course Summary Disclaimer: The visit summary below is not to be considered part of the above Progress Note.
[2017-05-06] MEDS: NS with KCL 20 mEq 1,000 ML IV SCH (20:14)
[2017-05-06] MEDS: DIVALPROEX SPRINKLE 125 MG CAPSULE PO SCH (20:16)
--- NOTE | 2017-05-07 08:20 | CT Scan Report ---
Indication: altered mental status PROCEDURE: CT head/brain wo con: Encounter: Initial Comparison: None Technique: Axial CT images through the head were performed without contrast. Iterative Reconstruction dose reducing technique was utilized. FINDINGS: Moderate atrophy. The ventricles are proportional to atrophy. There are scattered areas of low attenuation in the white matter which most likely represent changes from chronic microvascular ischemia. The brainstem, cerebellum, and cerebral hemispheres otherwise have a normal morphology and CT attenuation. There is no evidence of midline displacement. No hemorrhage, signs of acute territorial stroke, mass effect, mass lesions, or edema is evident. The visualized portions of the skull base, midface, and calvarium demonstrate no abnormality. The paranasal sinuses are well aerated and free of significant disease. The tympanic and mastoid cavities appear normal. IMPRESSION: No acute intracranial abnormality or hemorrhage. There is a preliminary report by virtual radiologic. .
[2017-05-07] MEDS: DIVALPROEX SPRINKLE 125 MG CAPSULE PO SCH (08:35)
--- NOTE | 2017-05-07 15:21 | Discharge Summary ---
<Nuvia Alberts - Last Filed: 05/07/17 15:18> Discharge Information Date of admission: 05/03/17 13:13 Anticipated date of discharge: 05/07/17 Attending Physician: Natalie Rojas DO Primary care physician: Lucretia Deckre MD Consults: Physician Consult [CONS] Routine Consulting Provider: Jaron Ragsdale Reason For Exam: a-fib with RVR/SVT - Discharge Diagnosis (1) Tachycardia Status: Resolved (2) Fecal impaction in rectum Status: Resolved (3) Hyperosmolality with hypernatremia Status: Resolved Discharge and chronic diagnoses A. fib-RVR/sinus tach/SVT - currently in NSR Dysrhythmic tachycardia, POA, acute-resolved. Nausea and vomiting, POA, acute-resolved. Hypernatremia with hyperosmolality, POA, acute, resolved Hypotension, POA-resolved Normocytic anemia, following hydration SIRS-POA Dehydration, POA, acute. Constipation with fecal impaction, POA, acute on chronic. Resolved Alzheimer's disease and dementia with behaviors, POA, acute on chronic. Hypertension -chronic. CAD, chronic. Chronic pain. Gait instability with frequent falls. Psychiatric illness - bipolar disorder, major depressive disorder, and schizophrenia, chronic. - Procedures Procedures: Date of Exam: 05/04/17 Type of Exam(s): US echo doppler complete DATE OF PROCEDURE May 04, 2017 This is a two-dimensional echo with spectral Doppler, color-flow and M-mode. It was obtained in a patient with arrhythmias. Left atrial dimension is normal. Left ventricle end-diastolic dimension is normal. Left ventricle wall thickness is normal. LV systolic function is normal with ejection fraction of 55%. Right atrium is normal. Right ventricle is normal. Aortic root dimension is normal. Mitral valve is morphologically normal with trace of mitral regurgitation.. Aortic valve is a trileaflet structure with no stenosis or insufficiency. Tricuspid valve shows trace of tricuspid regurgitation with normal estimated pulmonary artery systolic pressure of 23. Pulmonary valve shows no pulmonary insufficiency. There is no pericardial effusion. IMPRESSION 1. Normal LV systolic function with ejection fraction of 55%. 2. Trace of mitral regurgitation. 3. Trace of tricuspid regurgitation with normal estimated pulmonary artery systolic pressure of 23. 4. Aortic sclerosis. - Laboratory Labs: 05/07/17 05:47 05/07/17 05:47 - Microbiology 05/03/17 14:58 Peripheral/Iv Start Blood Culture - Preliminary No Growth After 4 Days 05/03/17 14:42 Peripheral/Iv Start Blood Culture - Preliminary No Growth After 4 Days 05/03/17 14:30 Urine, Cath Straight Urine Culture - Final No Growth After 2 Days - Radiology Radiology: Date of Exam: 05/03/17 Indication: N/V/anorexia PROCEDURE: CT abdomen pelvis w con: Findings: CT ABDOMEN: There is a trace amount of left basilar atelectasis. Heart size normal. No pleural effusion. Incidental note is made of a recurrent right hepatic vein. There is a small hiatal hernia. Both kidneys excrete contrast into nondilated renal collecting system. There is a fairly large but simple appearing exophytic cyst projecting from the anterior inferior right kidney. The liver, spleen, pancreas, and adrenal glands are normal. The gallbladder is thin walled and nondistended, without stones. The abdominal aorta is non-aneurysmal, with extensive circumferential calcific atherosclerotic disease. There is no retroperitoneal or mesenteric adenopathy. There is no definite bowel distention or bowel wall thickening. CT PELVIS: There is moderate stool in the rectal vault without fecal impaction. A normal appendix is tentatively identified. The urinary bladder is not distended. There is no pelvic sidewall adenopathy. No free fluid. No definite bony destructive process. IMPRESSION: No evidence for infectious or inflammatory process. No evidence for mass or adenopathy. = = = = = = = = = = = = = = = = = = = = = = = = = = = = = = = = = = = = = = = = = = = = = = = = = = = = = = = = = = = Date of Exam: 05/03/17 Indication: hypotension PROCEDURE: XR chest 1V: Findings: The examination is slightly expiratory in nature. There is some left basilar atelectasis. No definite pleural effusion. Heart size is normal. No pneumothorax. No mediastinal or hilar adenopathy. No subdiaphragmatic free air. Impression: Left basilar atelectasis. No definite pleural effusion or lobar consolidation. = = = = = = = = = = = = = = = = = = = = = = = = = = = = = = = = = = = = = = = = = = = = = = = = = = = = = = = = = = = Date of Exam: 05/06/17 Indication: fecal impaction PROCEDURE: XR KUB: Findings: The visualized lung bases are clear. The bowel gas pattern is nonobstructive and nonspecific. Gas is seen in nondilated small and large bowel. No significant colonic stool burden. The rectosigmoid area is not imaged. The bony structures are grossly unremarkable. Impression: Nonobstructive nonspecific bowel gas pattern. = = = = = = = = = = = = = = = = = = = = = = = = = = = = = = = = = = = = = = = = = = = = = = = = = = = = = = = = = = = Date of Exam: 05/06/17 Indication: altered mental status PROCEDURE: CT head/brain wo con: FINDINGS: Moderate atrophy. The ventricles are proportional to atrophy. There are scattered areas of low attenuation in the white matter which most likely represent changes from chronic microvascular ischemia. The brainstem, cerebellum, and cerebral hemispheres otherwise have a normal morphology and CT attenuation. There is no evidence of midline displacement. No hemorrhage, signs of acute territorial stroke, mass effect, mass lesions, or edema is evident. The visualized portions of the skull base, midface, and calvarium demonstrate no abnormality. The paranasal sinuses are well aerated and free of significant disease. The tympanic and mastoid cavities appear normal. IMPRESSION: No acute intracranial abnormality or hemorrhage. There is a preliminary report by [employer]. History of Present Illness HPI: Sonido Mcdonnell is a 61-year-old male resident of [facility] who presented to [facility] emergency room via EMS today, 05/03/17, for evaluation of nausea and vomiting. Mr. Mcdonnell has a history of Alzheimer's dementia with schizophrenia, bipolar disorder and major depressive disorder and is a poor historian. Limited prior medical records available from longterm. History is contributed to by EMS, ED, nursing and prior records. It is reported that on Mr. Mcdonnell began having nausea with vomiting. Since that time, he has been on a clear liquid diet with poor oral intake and decreased appetite. It was also noted that he has not had a documented bowel movement since 04/27/17. Today nursing staff became concerned as Mr. Mcdonnell's vomit had a "metallic" smell to it, and nursing became concerned about possible blood in vomit. No known fevers or illness. Labs at the longterm on 05/02 were unremarkable. EMS was contacted and upon evaluation, Sonido was noted to be tachycardic with a heart rate between 160-180's. At that time, nursing also reported that the Sonido had been refusing his psychiatric medications. Initially it was believed that he hadn't had his medications for a few days but after thorough review of the MAR, it appears that he has been intermittently compliant with his medications over the past 2 weeks. During his transfer to the ED, EMS reports that he was aggressive and agitated, preventing the placement of an IV. Upon arrival to the ED, vital signs revealed he was afebrile with a heart rate of 137 and blood pressure 90/62. Initially telemetry and EKG revealed SVT with a rate between 160-180. During the placement of an IV, he spontaneously converted to sinus tachycardia with SVC. He was then given Ativan 1mg IV due to his agitation and aggressive behaviors - he was swing at nursing. Labs were obtained. Blood counts were stable. BMP revealed hypernatremia with hyperosmolality and mild hyperglycemia without a history of diabetes. During his acute admission he was noted to transition from SVT to a-fib with RVR to sinus tachycardia off and on. A 2nd IV was started and he had 2L NS running simultaneously. Blood pressure improved slightly with a systolic pressure > 100. Metoprolol 5mg IV was given and improved his rate, decreasing it to between 90-120, which it has since maintained. Due to his borderline hypotension, Cardizem was held. CT abdomen/pelvis was obtained given his recent history of nausea and vomiting and showed moderate feces in the rectal vault and otherwise no acute changes or pathology. In light of his dysrhythmia and a-fib with RVR, Dr. Serrano was contacted and Mr. Mcdonnell was admitted to CCU as an inpatient for further evaluation, close cardiac and respiratory monitoring, cardiology consult with possible intervention and IV fluids for dehydration. Dr. Ragsdale was consulted and patient case discussed with Treasure Carrion APRN. The patient was seen immediately upon his arrival to CCU, room #4, and then later in conjunction with Dr. Serrano. Extensive review of his prior medical records, ED documentation, medication list and current chart were conducted. History and physical exam were extremely limited given Mr. Mcdonnell's mentation and history of dementia with recent treatment with Ativan. PCP is Dr. Decker. Review of chart provides documentation of patient's wishes to be a DNR which were confirmed by Dr. Serrano with patient's guardian Objective Vital signs: Temperature 97.2 F 05/07/17 12:08 Pulse Rate 68 05/07/17 12:08 Respiratory Rate 14 05/07/17 12:08 Blood Pressure 122/68 05/07/17 12:08 Pulse Oximetry 98 05/07/17 12:08 Height/Weight/BMI: Weight 74.6 kg - Constitutional Present: no acute distress, well nourished, well developed - Routine HEENT Exam Head: Present: normocephalic, atraumatic - Routine Respiratory Exam Present: decreased breath sounds, CTA bilaterally. Absent: wheezes - Routine Cardiovascular Exam Present: RRR. Absent: murmur - Routine Abdominal Exam Present: soft, normoactive bowel sounds, non distended. Absent: tenderness - Routine Extremities Exam Present: no edema, normal capillary refill - Routine Skin Exam Present: dry, warm - Routine Neurological Exam Present: alert, moving all extremities Patient is able to answer some yes and no questions. He does try to talk but his speech is unintelligible. He is much more alert and cooperative compared to yesterday. - Routine Lymphatic Exam Lymphatic: Absent: adenopathy - Routine Psychiatric Exam Present: cooperative, unable to assess Hospital Course This is a general summary of the patient's hospital course. For more details refer to the complete medical record. Hospital course: 05/03/17 (Admission) Admit to inpatient status to CCU under the care of Dr. Serrano for close cardiac and respiratory monitoring. Dr. Ragsdale consulted for cardiac evaluation and expertise. Unknown history of arrhythmia. EKGs concerning for SVT vs. A-fib with RVR vs. Sinus tach. Discussed patient case with MADDI Amanda. Patient given metoprolol 5mg IV in ED with some rate improvement. Currently patient is rate controlled but remains dysrhythmic. Continue to monitor closely on telemetry. TSH within normal limits. Magnesium stable. Potassium stable. SIRS markers met including tachycardia, tachypnea, hyperglycemia in non- diabetic. Concerning for sepsis given hypotension, cardiac dysfunction and borderline lactate at 1.9. No current infectious source known. UA unremarkable. CXR results pending. Procalcitonin pending. Will obtain serial lactates and blood cultures x 2. Initiate Rocephin 1g IV x 24 hours for empiric treatment. If patient remains afebrile without leukocytosis or evidence of infection, consider discontinuation of antibiotics. History of nausea/vomiting since 04/27. CBC stable without leukocytosis or known fever. Hypernatremia with hyperosmolality present on admission. Patient given 2L NS in ED. Will continue NS at 125cc/hr given dehydration and current poor oral intake. Will maintain clear liquid diet as able. Will obtain speech therapy evaluation in AM for dysphagia. Monitor I&O closely as well as daily weights. Zofran as needed for nausea/vomiting. Lactate within normal limits. LFTs stable. CT abdomen/pelvis obtained in ED revealed no acute changes or disease, scattered diverticulosis without evidence of diverticulitis, moderate feces in rectal vault and no obstruction, small left lower lobe effusion and hiatal hernia. Given concern for sepsis and dysrhythmia as well as effusion noted on CT, will obtain CXR now for further complete evaluation. Encourage incentive spirometry as able. Bruise to right hip noted. No reported history of trauma. No apparent tenderness with palpation. CT abdomen/pelvis noted no acute bony changes or fracture. If apparent pain with movement or other changes are noted, may consider obtaining separate imaging of hip. Will hold off for now. Given concern for possible blood in vomit per NH, will initiate Protonix 40mg IV daily for GI protection. Will assess for occult blood in emesis. SCDs for DVT prophylaxis. Will discuss possible Lovenox or other anticoagulant with Dr. Serrano for additional prophylaxis. Continue home medications. Haldol and ativan for agitation and aggression. Baseline behaviors are unknown. May consider psychiatric consult if behaviors continue. Continue with bowel motivation as needed given history of constipation and current fecal impaction. Provide safe and supportive environment. DNR documentation noted in chart and verified by Dr. Serrano with patient's guardian. Patient is expected to stay > 2 over nights and upon discharge, care will be returned to his PCP, Dr. Decker. 05/04/17 Rhythm/rate remained stable. Cardiology consultation initiated. Echocardiogram pending. Has received fluids since admission, sodium climbing-converted to half-normal saline. Poor oral intake, refusing oral meds. Depakote converted to IV administration, anticipate psychiatric consultation, [facility] evaluation. No ongoing nausea/vomiting reported by staff; multiple bowel movements since admission. Empiric treatment initiated with ceftriaxone on admission, no clear indication of infection. Cultures negative to date-if blood cultures negative tomorrow will discontinue antibiotics. SIRS criteria can largely be explained by dehydration/tachyarrhythmias. Stable to transfer out of ICU. 05/05/17 Rhythm/rate remained stable. Cardiology recommends low-dose beta lalit. Echocardiogram unremarkable.. Continues to refuse all oral intake/medications. Depakote converted to IV administration yesterday-continue if supply available. Evaluated for admission to [facility]-discussed with Dr. Alfaro, transfer when medically stable. Sodium has dropped 155-144; convert to low-volume normal saline with potassium ( potassium 3.5 today) Hemoglobin has dropped progressively to 13.6-10.7-9.8; likely due to hydration however no baseline values available prior to 05/02 at nursing facility. Hemoccult positive 1 but no gross blood loss and has had multiple stools after fecal impaction and several suppositories. KUB in a.m. to assess fecal volume. If hemoglobin relatively stable overnight and will transfer to inpatient psychiatric care. If hemoglobin drops further will need to discuss with patient's guardian to determine course of care. No ongoing nausea/vomiting reported by staff; multiple bowel movements since admission. Empiric treatment initiated with ceftriaxone on admission, no clear indication of infection. Blood cultures negative after 48 hours-discontinue Rocephin, urine culture also negative after 24 hours 05/06/17 Continues to refuse all oral intake/medications. Continue IVF's. Hemoccult positive 1 but no gross blood loss and has had multiple stools after fecal impaction and several suppositories. KUB shows no significant stool load Hemoglobin stable. No ongoing nausea/vomiting reported by staff; multiple bowel movements since admission. Recommend aggressive bowel regimen be ordered on DC to NH given frequent fecal impactions over the past few mos. Nursing provides all history. Spoke with Trever Mcdonnell re: patient's condition. He does report patient has had several falls at [facility] over the past month. Will check CT head. If CT is neg, and patient is not taking in p.o., will need to discuss further wishes in re: to possible hospice. Trever is open to this. He would like to have a meeting with himself and Columba (co-guardian) with the attending after CT is resulted to discuss opts. 05/07/17 Patient is looking much better today. He is eating Jell-O and drinking some. He has been accepted to [facility]. Labs and vitals are stable. CT head was negative for acute intracranial abnormality or hemorrhage. He does have moderate atrophy and changes from chronic microvascular ischemia. Trever Mcdonnell - -co-guardian (and patient's brother). Time spent with patient: discharge greater than 30 minutes DVT Prophylaxis: SCD's Discharge Plan - Discharge Disposition Discharge Date: 05/07/17 Disposition: [address] [facility] *Condition: Stable Reason For Visit (Visit label in EMR): arrythmias,decreased po intake, psychosis - Discharge Medications *Discharge Medications: New Metoprolol Tartrate [Lopressor] 25 mg PO BIDWM #0 tab Continue Milk of Magnesia [Mom] 30 ml PO DAILY PRN PRN Reason: Constipation Hydrocodone/APAP 5/325 [[place] 5/325] 1 tab PO Q4HR PRN PRN Reason: Pain LORazepam [Ativan] 0.5 mg PO Q3H PRN PRN Reason: Anxiety Haloperidol Inj [Haldol] 5 mg IM Q24H PRN PRN Reason: Agitation Bisacodyl Supp [Dulcolax] 10 mg RECTALLY DAILY PRN PRN Reason: Constipation Menthol [Biofreeze] 1 applicatio TP PRN LORazepam [Ativan] 0.5 mg PO HS fentaNYL [Fentanyl] 12 mcg TD Q3D Divalproex Sprinkle [Depakote Sprinkle] 4 cap PO BID Mirtazapine [Remeron] 15 mg PO HS Ondansetron HCl [Zofran] 4 mg PO Q4HR PRN PRN Reason: Nausea - Discharge Packet/Instructions *Diet: Full liquids *Activity: As tolerated *Pain Management/Treatment: See medication list *Wound Care: Not applicable *Expected Signs/Symptoms: Not applicable present *Notify Physician if: Not applicable present *During Business Hours Contact: Not applicable at present *After Business Hours Contact: Not applicable at present *Pending Lab/Results: No Pending Lab - IRU/GEN Discharge/Transfer - Referrals/Follow Up - Patient Handouts <BobNatalie Maldonado - Last Filed: 05/07/17 17:08> Discharge Information Date of admission: 05/03/17 13:13 Attending Physician: Natalie Rojas DO Primary care physician: Lucretia Decker MD Consults: 05/03/17 13:58 Case Management Consult [CONS] Routine Reason For Exam: Physician Consult [CONS] Routine Consulting Provider: Jaron Ragsdale Reason For Exam: a-fib with RVR/SVT Ordering Provider has Notified Agency Sales Development Associate: Yes 05/04/17 [facility] Screen [CONS] Routine - Discharge Diagnosis (1) Tachycardia Status: Resolved (2) Fecal impaction in rectum Status: Resolved (3) Hyperosmolality with hypernatremia Status: Resolved - Laboratory Labs: 05/07/17 05:47 05/07/17 05:47 - Microbiology Microbiology 05/03/17 14:58 Peripheral/Iv Start Blood Culture - Preliminary No Growth After 4 Days 05/03/17 14:42 Peripheral/Iv Start Blood Culture - Preliminary No Growth After 4 Days 05/03/17 14:30 Urine, Cath Straight Urine Culture - Final No Growth After 2 Days Objective Vital signs: Temperature 98.3 F 05/07/17 16:39 Pulse Rate 52 L 05/07/17 16:39 Respiratory Rate 16 05/07/17 16:39 Blood Pressure 105/66 05/07/17 16:39 Pulse Oximetry 99 05/07/17 16:39 Height/Weight/BMI: Weight 74.6 kg Hospital Course This is a general summary of the patient's hospital course. For more details refer to the complete medical record. Hospital course: Patient was seen and examined. I agree with the assessment and plan of the midlevel noted above. Resting comfortably upon my exam with improved agitation. Gen: resting comfortably CV: RRR Lungs: CTAB Ext: no c/c/e Neuro: no focal signs Patient has been accepted by [facility]. He is medically stable and will transfer there today. Discharge Plan - IRU/GEN Discharge/Transfer
[2017-05-07 16:40] VITALS: RESP 16; TEMP 98.3; O2SAT 99
[2017-05-07 17:25] VITALS: BP 107/61; PULSE 50
[2017-05-07] MEDS: NS with KCL 20 mEq 1,000 ML IV SCH (19:38)
== END 2017-05-07 19:19 | DRG 309 ==
LOC: ED 09:15 → CCU 13:13 → SUATTDRO 13:13 → CCU 13:20 → MED 05-04 17:48
PROVIDERS: ADMIT Internal Medicine; ATTEND Internal Medicine

== ENCOUNTER 2017-05-07 19:03 | Inpatient (IN) ==
[2017-05-07] MEDS ORDERED: LORazepam 0.5 MG TABLET PO PRN (19:47)
[2017-05-07] MEDS ORDERED: FALL RISK - PHARMACY CONSULT XX ONE (19:56)
[2017-05-07] MEDS ORDERED: HALOPERIDOL 5 MG/ML INJECTION IVP PRN (19:56)
[2017-05-07] MEDS ORDERED: BISACODYL 10 MG SUPPOSITORY RECTALLY PRN (19:56)
[2017-05-07] MEDS ORDERED: SALINE FLUSH 10ml SYRINGE IVF PRN (19:56)
[2017-05-07] MEDS ORDERED: ONDANSETRON 4 MG/2 ML INJECTION IVP PRN (19:56)
[2017-05-07] MEDS ORDERED: HYDROCODONE/APAP 5mg/325mg TABLET PO PRN (19:56)
[2017-05-07] MEDS: DIVALPROEX SPRINKLE 125 MG CAPSULE PO SCH (20:44)
[2017-05-07 21:51] VITALS: BMI 22.4
--- NOTE | 2017-05-08 11:30 | 24 Hour Neuropsychiatic Eval ---
Date of Admission: 05/07/17 19:39 Chief complaint: Agitation, physical aggression History of Present Illness: Patient is a 61-year-old male admitted from the [facility] [place] on 05/07/17 due to agitation, aggression in the context of being off of his psych meds while medically stabilized. Patient continued to be frequently combative with cares on medical floor. Patient has a past history of various psychiatric disorders including bipolar and was not adherent with his Depakote since prior to his recent hospitalization on medical floor. On interview, he is sitting in chair and mostly mumbles unintelligbly making little eye contact. He does state, "I'm feeling good." Patient was quite aggressive with cares last night as well but PRN Ativan was effective in calming him. Per discharge summary, that hospital course was as follows: 05/03/17 (Admission) Admit to inpatient status to CCU under the care of Dr. Serrano for close cardiac and respiratory monitoring. Dr. Ragsdale consulted for cardiac evaluation and expertise. Unknown history of arrhythmia. EKGs concerning for SVT vs. A-fib with RVR vs. Sinus tach. Discussed patient case with MADDI Amanda. Patient given metoprolol 5mg IV in ED with some rate improvement. Currently patient is rate controlled but remains dysrhythmic. Continue to monitor closely on telemetry. TSH within normal limits. Magnesium stable. Potassium stable. SIRS markers met including tachycardia, tachypnea, hyperglycemia in non- diabetic. Concerning for sepsis given hypotension, cardiac dysfunction and borderline lactate at 1.9. No current infectious source known. UA unremarkable. CXR results pending. Procalcitonin pending. Will obtain serial lactates and blood cultures x 2. Initiate Rocephin 1g IV x 24 hours for empiric treatment. If patient remains afebrile without leukocytosis or evidence of infection, consider discontinuation of antibiotics. History of nausea/vomiting since 04/27. CBC stable without leukocytosis or known fever. Hypernatremia with hyperosmolality present on admission. Patient given 2L NS in ED. Will continue NS at 125cc/hr given dehydration and current poor oral intake. Will maintain clear liquid diet as able. Will obtain speech therapy evaluation in AM for dysphagia. Monitor I&O closely as well as daily weights. Zofran as needed for nausea/vomiting. Lactate within normal limits. LFTs stable. CT abdomen/pelvis obtained in ED revealed no acute changes or disease, scattered diverticulosis without evidence of diverticulitis, moderate feces in rectal vault and no obstruction, small left lower lobe effusion and hiatal hernia. Given concern for sepsis and dysrhythmia as well as effusion noted on CT, will obtain CXR now for further complete evaluation. Encourage incentive spirometry as able. Bruise to right hip noted. No reported history of trauma. No apparent tenderness with palpation. CT abdomen/pelvis noted no acute bony changes or fracture. If apparent pain with movement or other changes are noted, may consider obtaining separate imaging of hip. Will hold off for now. Given concern for possible blood in vomit per NH, will initiate Protonix 40mg IV daily for GI protection. Will assess for occult blood in emesis. SCDs for DVT prophylaxis. Will discuss possible Lovenox or other anticoagulant with Dr. Serrano for additional prophylaxis. Continue home medications. Haldol and ativan for agitation and aggression. Baseline behaviors are unknown. May consider psychiatric consult if behaviors continue. Continue with bowel motivation as needed given history of constipation and current fecal impaction. Provide safe and supportive environment. DNR documentation noted in chart and verified by Dr. Serrano with patient's guardian. Patient is expected to stay > 2 over nights and upon discharge, care will be returned to his PCP, Dr. Decker. 05/04/17 Rhythm/rate remained stable. Cardiology consultation initiated. Echocardiogram pending. Has received fluids since admission, sodium climbing-converted to half-normal saline. Poor oral intake, refusing oral meds. Depakote converted to IV administration, anticipate psychiatric consultation, [facility] evaluation. No ongoing nausea/vomiting reported by staff; multiple bowel movements since admission. Empiric treatment initiated with ceftriaxone on admission, no clear indication of infection. Cultures negative to date-if blood cultures negative tomorrow will discontinue antibiotics. SIRS criteria can largely be explained by dehydration/tachyarrhythmias. Stable to transfer out of ICU. 05/05/17 Rhythm/rate remained stable. Cardiology recommends low-dose beta lalit. Echocardiogram unremarkable.. Continues to refuse all oral intake/medications. Depakote converted to IV administration yesterday-continue if supply available. Evaluated for [facility]-discussed with Dr. Alfaro, transfer when medically stable. Sodium has dropped 155-144; convert to low-volume normal saline with potassium ( potassium 3.5 today) Hemoglobin has dropped progressively to 13.6-10.7-9.8; likely due to hydration however no baseline values available prior to 05/02 at nursing facility. Hemoccult positive 1 but no gross blood loss and has had multiple stools after fecal impaction and several suppositories. KUB in a.m. to assess fecal volume. If hemoglobin relatively stable overnight and will transfer to inpatient psychiatric care. If hemoglobin drops further will need to discuss with patient's guardian to determine course of care. No ongoing nausea/vomiting reported by staff; multiple bowel movements since admission. Empiric treatment initiated with ceftriaxone on admission, no clear indication of infection. Blood cultures negative after 48 hours-discontinue Rocephin, urine culture also negative after 24 hours 05/06/17 Continues to refuse all oral intake/medications. Continue IVF's. Hemoccult positive 1 but no gross blood loss and has had multiple stools after fecal impaction and several suppositories. KUB shows no significant stool load Hemoglobin stable. No ongoing nausea/vomiting reported by staff; multiple bowel movements since admission. Recommend aggressive bowel regimen be ordered on DC to NH given frequent fecal impactions over the past few mos. Nursing provides all history. Spoke with Trever Mcdonnell re: patient's condition. He does report patient has had several falls at [facility] over the past month. Will check CT head. If CT is neg, and patient is not taking in p.o., will need to discuss further wishes in re: to possible hospice. Trever is open to this. He would like to have a meeting with himself and Columba (co-guardian) with the attending after CT is resulted to discuss opts. 05/07/17 Patient is looking much better today. He is eating Jell-O and drinking some. He has been accepted to [facility]. Labs and vitals are stable. CT head was negative for acute intracranial abnormality or hemorrhage. He does have moderate atrophy and changes from chronic microvascular ischemia. [facility] Patient Stated Medical History Alzheimer's Disease Yes Dementia Yes Cardiac Arrhythmia Yes: Afib with RVR Coronary Artery Disease Yes Hypertension Yes Hiatal Hernia Yes Other GI Yes: CONSTIPATION Other Yes: frequent falls; chronic pain Bipolar Disorder Yes Depression Yes: MAJOR DEPRESSIVE Schizophrenia Yes Other Behavioral Health Yes: agitation Clinic Medical History Tachycardia (Resolved Medical) present on admission - alternativing between a-fib with RVR, sinus tachycarida and SVT. Hypotension (Acute Medical) Fecal impaction in rectum (Resolved Medical) present on admission. Hyperosmolality with hypernatremia (Resolved Medical) present on admission. Dehydration (Acute Medical) present on admission. SIRS (systemic inflammatory response syndrome) (Acute Medical) present on admission. Nausea and vomiting (Resolved Medical) present on admission. Surgical History: Unable to obtain due to patient's dementia and mentation. Family History: Unable to obtain due to patient's dementia - Social History Smoking status: Unknown if ever smoked Social history: Unable to obtain social history from patient currently other than daughter is DPOA and he does have placement. Strengths: see above Mental Status Exam Vitals: Last Vital Signs Temp 98.3 F 05/07/17 20:45 Pulse 78 05/07/17 20:45 Resp 18 05/07/17 20:45 BP 111/67 05/07/17 20:45 Pulse Ox 98 05/07/17 20:45 Height: 1.83 m Weight: 75.2 kg - Mental Status Exam Muscle Strength/Tone: Weak Dressing: Other (Hospital gown) Grooming: Disheveled Attitude: Combative Motor Activity: Retardation Eye Contact: Poor Speech: Slowed Volume: Soft Rhythm: Mumbled, Paucity of Language Orientation: Disoriented to time, Disoriented to place, Disoriented to situation , Oriented to person Mood: Neutral Affect: Flat Rate of Thoughts: Delayed Thought Organization: Confused Associations: Illogical Abstract Reasoning: Impaired, concrete Computation: Poor Computation Thought Content: Other (Poverty of thought) Perception/Psychotic: Perception Normal Language: Naming Impaired Fund of Knowledge: Poor fund of knowledge Memory: Poor-immediate, Poor-recent, Poor-remote Suicidal Ideation: None Homicidal Ideation: None Insight: Impaired Judgement: Impaired Impulse Control: Poor Assessment and Plan (1) Major neurocognitive disorder Current visit: Yes Status: Acute Etiology unclear at this point, severe, with behavioral disturbance History of various psychiatric diagnoses including - Alzheimer's disease, bipolar disorder, MDD, schizophrenia, will attempt to clarify (2) Atrial fibrillation Current visit: Yes Status: Acute (3) Normocytic anemia Current visit: Yes Status: Acute (4) Hypertension Current visit: Yes Status: Acute (5) Coronary artery disease Current visit: Yes Status: Acute (6) Dehydration Problem details: present on admission. Current visit: No Status: Acute Admit to [facility] for evaluation and stabilization; maintain safety and elopement precautions. Have reviewed labs; will order/review Vitamin B12 and folate levels. Obtain collateral information about family's goals of care, patient's past psychiatric history. Attempting to avoid antipsychotic use as some of agitation may be related to EPS /akathisia from Haldol on medical floor. Will continue meds otherwise for the time being and monitor mood, behavior, response.
[2017-05-08] MEDS: DIVALPROEX SPRINKLE 125 MG CAPSULE PO SCH (11:52)
--- NOTE | 2017-05-08 13:35 | History & Physical Report ---
History of Present Illness Date: 05/08/17 Chief complaint: major neurocognitive disorder with behaviors, a-fib, anemia, hypertension HPI: Sonido Mcdonnell is a 61-year-old male resident of [facility] who presented to [facility] emergency room via EMS on 05/03/17 for evaluation of nausea, vomiting, tachycardia and hypotension. Upon arrival to the ED, he was found to be in SVT with a rate between 160-180 bpm and a blood pressure at 90/62. He spontaneously converted to sinus tachycardia with SVC with placement of IV while in the ED. Close monitoring on telemetry with multiple EKGs in the ED during his acute evaluation revealed multiple transitions from SVT to a-fib to sinus tachycardia. He was given 2L NS which slightly improved his blood pressure with a systolic pressure >100 allowing for a dose of metoprolol 5mg to be given improving his rate, decreasing it to between 90-120, which was maintained. Due to his borderline hypotension, Cardizem was held. CT abdomen/pelvis was obtained given his recent history of nausea and vomiting and showed moderate feces in the rectal vault and otherwise no acute changes or pathology. Labs revealed hypernatremia with hyperosmolality. In light of his dysrhythmia and a- fib with RVR, the hospitalist service was contacted and Mr. Mcdonnell was admitted to CCU as an inpatient for further evaluation, close cardiac and respiratory monitoring, and IV fluids for dehydration. Dr. Ragsdale was consulted. During his acute hospitalization, his rhythm and rate remained stable. Dr. Ragsdale initiated low-dose metoprolol for additional control. Echocardiogram was obtained and was relatively unremarkable. His acute nausea and vomiting resolved as well as his fecal impaction following aggressive bowel motivation. He has a reported history of Alzheimer's dementia with schizophrenia, bipolar disorder and major depressive disorder. It was reported that prior to his acute admission he had been noncompliant with his psychiatric medications and refusing to take his medications. During his acute admission, he was transitioned to Depakote IV to ensure compliance but continued to have behaviors including refusing cares, swinging/grabbing staff and restlessness. He underwent a psychiatric screening and it was recommended that he transfer to the [facility] once stabilized. He was transferred to [facility] on 05/06 for psychiatric stabilization to minimize risk of patient harming himself or others. The hospitalist service was consulted for continued medical management. Extensive review of his prior medical records, ED documentation, medication list and current chart were conducted. Limited prior medical records available from [facility]. History is contributed to by EMS, ED, nursing and prior records. History and physical exam were extremely limited given Mr. Mcdonnell is a poor historian. PCP is Dr. Decker. Review of chart provides documentation of patient's wishes to be a DNR. Mr. Mcdonnell is seen this morning in his room, and easily awakens with soft voice stimuli. He denies any complaints including no fevers, chills, nausea, vomiting , chest pain, shortness of breath, abdominal pain, dysuria. Nursing reports that he had been restless during the evening of his admission with both physical and verbal aggressions which required PRN ativan. It was noted that he has poor comprehension and is very difficulty to redirect. Labs on 05/07/17 prior to transfer were relatively unremarkable. Vital signs are stable. Review of Systems ROS unobtainable: due to mental status All systems PM: 10-point ROS was reviewed, no additional remarkable complaints except - Constitutional Constitutional: Absent: chills, fever(s), headache(s), weakness - EENMT Eyes: Absent: change in vision, photophobia Ears: Absent: ear pain Balance: Absent: falling to one side Nose: Absent: nosebleeds Mouth/Throat: Present: dry mouth. Absent: pain - Cardiovascular Cardiovascular: Absent: chest pain, palpitations, syncope, dyspnea on exertion, orthopnea, edema Vascular: Absent: pedal edema - Respiratory Respiratory: Absent: cough, dyspnea, dyspnea on exertion, wheezing - Gastrointestinal Gastrointestinal: Present: constipation, melena (+ blood in stool on 05/05/17. No acute blood noted). Absent: abdominal pain, diarrhea, nausea, vomiting - Genitourinary Genitourinary: Absent: dysuria, flank pain, hematuria, scrotal swelling - Musculoskeletal Musculoskeletal: Absent: back pain, deformity - Integumentary/Breasts Integumentary: Absent: rash - Neurological Neurological: Present: confusion. Absent: convulsions, dizziness, focal weakness - Psychiatric Psychiatric: Present: behavioral changes, depression, mood swings - Endocrine Endocrine: Absent: palpitations, polyuria - Hematologic/Lymphatic Hematologic/Lymphatic: Present: easy bruising - Allergic/Immunologic Allergic/Immunologic: Absent: seasonal rhinorrhea [facility] Patient Stated Medical History Alzheimer's disease. Dementia. Hypertension. CAD. Chronic pain. Hiatal hernia. Constipation. Gait instability with frequent falls. Bipolar disorder Major depressive disorder. Schizophrenia. Seborrheic keratosis. Normocytic anemia. Surgical History: Unable to obtain due to patient's dementia and mentation. Family History Updates: Unable to obtain due to patient's dementia and mentation. - Social History Smoking status: Unknown if ever smoked Substance use type: does not use Alcohol intake frequency: does not drink Housing: [facility] Household members: none Current occupational status: retired, disabled Does patient use chewing tobacco?: No Current residence: [place] Social history: PCP - Dr. Decker. Medications Home Medications Medication Instructions Recorded Confirmed Type Bisacodyl Supp [Dulcolax] 10 mg RECTALLY DAILY PRN 05/03/17 05/08/17 History Divalproex Sprinkle [Depakote 4 cap PO BID 05/03/17 05/08/17 History Sprinkle] Haloperidol Inj [Haldol] 1 - 2 mg IVP Q4H PRN 05/03/17 05/08/17 History Hydrocodone/APAP 5/325 [[place] 1 tab PO Q4HR PRN 05/03/17 05/08/17 History 5/325] LORazepam [Ativan] 0.5 mg PO HS 05/03/17 05/03/17 History LORazepam [Ativan] 0.5 mg PO Q3H PRN 05/03/17 05/03/17 History Menthol [Biofreeze] 1 applicatio TP PRN 05/03/17 05/03/17 History Milk of Magnesia [Mom] 30 ml PO DAILY PRN 05/03/17 05/08/17 History Mirtazapine [Remeron] 15 mg PO HS 05/03/17 05/03/17 History Ondansetron HCl [Zofran] 4 mg PO Q4HR PRN 05/03/17 05/03/17 History fentaNYL [Fentanyl] 12 mcg TD Q3D 05/03/17 05/08/17 History Allergies Allergy/AdvReac Type Severity Reaction Status Date / Time No Known Allergies Allergy Verified 05/03/17 09:44 Exam Vital Signs: Temperature 97.2 F 05/08/17 08:00 Pulse Rate 78 05/08/17 12:55 Respiratory Rate 16 05/08/17 12:55 Blood Pressure 96/61 05/08/17 08:00 Pulse Oximetry 98 05/08/17 12:55 Height/Weight/BMI: Height 6 ft Weight 165 lb 12.602 oz Body Mass Index 22.4 Comments: Patient initially sleeping on exam and awakes easily with soft voice stimuli; alert and orientated to person only. - Constitutional Present: no acute distress, well nourished, well developed, thin, cooperative - Routine HEENT Exam Head: Present: normocephalic, atraumatic Eye: Present: PERRL. Absent: conjunctival icterus ENT: Present: mucous membranes dry - Routine Neck Exam Present: supple, full ROM, trachea midline - Routine Chest/Breast/Axilla Exam Chest wall: Absent: tenderness, pacemaker - Routine Respiratory Exam Present: CTA bilaterally. Absent: rales, respiratory distress, rhonchi, wheezes , crackles - Routine Cardiovascular Exam Present: S1, S2, irregularly irregular - Routine Abdominal Exam Present: soft, normoactive bowel sounds, non distended, non tender. Absent: guarding, firm - Routine Extremities Exam Present: no edema, non tender, full ROM, pulses intact - Routine Back/Spine/Pelvis Exam Back/Spine: Present: full ROM. Absent: vertebral tenderness - Routine Skin Exam Present: intact, dry, warm. Absent: jaundice Comments: area of ecchymosis noted to right hip noted on acute admission on 05/03/17. CT showed no acute bony abnormality. - Routine Neurological Exam Present: alert (orientated to person only), moving all extremities, hearing grossly intact. Absent: facial asymmetry speech mumbled and at times very difficult to understand. - Routine Psychiatric Exam Present: cooperative Results - Echocardiogram Echocardiogram: Date of Exam: 05/04/17 Type of Exam(s): US echo doppler complete This is a two-dimensional echo with spectral Doppler, color-flow and M-mode. It was obtained in a patient with arrhythmias. Left atrial dimension is normal. Left ventricle end-diastolic dimension is normal. Left ventricle wall thickness is normal. LV systolic function is normal with ejection fraction of 55%. Right atrium is normal. Right ventricle is normal. Aortic root dimension is normal. Mitral valve is morphologically normal with trace of mitral regurgitation.. Aortic valve is a trileaflet structure with no stenosis or insufficiency. Tricuspid valve shows trace of tricuspid regurgitation with normal estimated pulmonary artery systolic pressure of 23. Pulmonary valve shows no pulmonary insufficiency. There is no pericardial effusion. IMPRESSION 1. Normal LV systolic function with ejection fraction of 55%. 2. Trace of mitral regurgitation. 3. Trace of tricuspid regurgitation with normal estimated pulmonary artery systolic pressure of 23. 4. Aortic sclerosis. - Impressions Date of Exam: 05/06/17 Type of Exam(s): XR KUB Reason for Exam(s): fecal impaction Findings: The visualized lung bases are clear. The bowel gas pattern is nonobstructive and nonspecific. Gas is seen in nondilated small and large bowel. No significant colonic stool burden. The rectosigmoid area is not imaged. The bony structures are grossly unremarkable. Impression: Nonobstructive nonspecific bowel gas pattern. - Imaging and Cardiology CT scan - head Status: image reviewed by me Additional comments: Date of Exam: 05/06/17 Type of Exam(s): CT head/brain wo con Reason for Exam(s): altered mental status FINDINGS: Moderate atrophy. The ventricles are proportional to atrophy. There are scattered areas of low attenuation in the white matter which most likely represent changes from chronic microvascular ischemia. The brainstem, cerebellum, and cerebral hemispheres otherwise have a normal morphology and CT attenuation. There is no evidence of midline displacement. No hemorrhage, signs of acute territorial stroke, mass effect, mass lesions, or edema is evident. The visualized portions of the skull base, midface, and calvarium demonstrate no abnormality. The paranasal sinuses are well aerated and free of significant disease. The tympanic and mastoid cavities appear normal. IMPRESSION: No acute intracranial abnormality or hemorrhage. Chest x-ray Status: image reviewed by me Additional comments: Date of Exam: 05/03/17 Type of Exam(s): XR chest 1V Reason for Exam(s): hypotension Findings: The examination is slightly expiratory in nature. There is some left basilar atelectasis. No definite pleural effusion. Heart size is normal. No pneumothorax. No mediastinal or hilar adenopathy. No subdiaphragmatic free air. Impression: Left basilar atelectasis. No definite pleural effusion or lobar consolidation. CT scan - abdomen Status: image reviewed by me Additional comments: Date of Exam: 05/03/17 Type of Exam(s): CT abdomen pelvis w con Reason for Exam(s): N/V/anorexia Findings: CT ABDOMEN: There is a trace amount of left basilar atelectasis. Heart size normal. No pleural effusion. Incidental note is made of a recurrent right hepatic vein. There is a small hiatal hernia. Both kidneys excrete contrast into nondilated renal collecting system. There is a fairly large but simple appearing exophytic cyst projecting from the anterior inferior right kidney. The liver, spleen, pancreas, and adrenal glands are normal. The gallbladder is thin walled and nondistended, without stones. The abdominal aorta is non-aneurysmal, with extensive circumferential calcific atherosclerotic disease. There is no retroperitoneal or mesenteric adenopathy. There is no definite bowel distention or bowel wall thickening. CT PELVIS: There is moderate stool in the rectal vault without fecal impaction. A normal appendix is tentatively identified. The urinary bladder is not distended. There is no pelvic sidewall adenopathy. No free fluid. No definite bony destructive process. IMPRESSION: No evidence for infectious or inflammatory process. No evidence for mass or adenopathy. Assessment and Plan (1) Major neurocognitive disorder Current visit: Yes Status: Acute (2) Normocytic anemia Current visit: Yes Status: Acute (3) Atrial fibrillation Current visit: Yes Status: Chronic (4) Hypertension Current visit: Yes Status: Chronic (5) Coronary artery disease Current visit: Yes Status: Chronic Assessment and Plan: Assessment Major neurocognitive disorder with behavioral changes. Chronic a-fib with recent admission secondary to a-fib with RVR. Borderline hypotension, chronic. Leukopenia, acute. Normocytic anemia. Alzheimer's dementia. Hypertension with CAD. Chronic pain. Constipation with frequent fecal impactions. Gait instability with frequent falls. Bipolar disorder. Major depressive disorder. Schizophrenia. Seborrheic keratosis. Plan - 05/08/17 (Admission) Agree with admission to [facility] under the care of Dr. Alfaro and team for psychiatric evaluation and treatment. Patient is high elopement risk - elopement precautions. Provide safe and supportive environment and encourage participation in floor activities. Dr. Alfaro attempting to avoid antipsychotic medications as some of the patient's agitation may be secondary to EPS/akathesia from the Haldol. Recent acute hospitalization for a-fib with RVR. Patient seen and evaluated by Dr. Ragsdale who recommended metoprolol 25mg BID. In light of persistent borderline hypotension, will decrease metoprolol to 12.5mg BID. Monitor blood pressure closely and hold metoprolol if systolic pressure <100 or heart rate < 50 bpm. May consider consult to Dr. Ragsdale if patient becomes symptomatic, recurrence of a-fib with RVR or persistent hypotension with low dose metoprolol. Patient is not on any anticoagulation at this time, including no ASA. Given his recent + fecal occult blood test on 05/05/17, will hold on ASA and anticoagulation. Will add Pepcid 20mg po daily for GI protection. Nausea/vomiting present at time of acute admission has resolved. Zofran as needed. Continue to encourage oral intake. Leukopenia noted with WBC at 3.3 on 05/07/17. Will monitor periodically throughout admission. Persistent normocytic anemia noted with hemoglobin stable at 11.0. B12 and folate results pending. Monitor periodically throughout admission. TSH stable on 05/03 at1.96. Continue other home medications. Upon discharge, patient's care will be returned to his PCP, Dr. Decker. Appreciate the opportunity to assist in the care of Mr. Mcdonnell. Patient code status - DNR: documentation noted in chart. I have seen and examined the patient. I agree with the assessment and plan of the PA above. Patient resting in bed upon my eval. No new issues. Gen: resting comfortably CV: RRR LUngs: CTAB Abd: soft, NT, ND, + BS Ext: no c/c/e. Neuro: no focal signs. Hold parameters on metoprolol at decreased dose. Speak with Dr. Ragsdale for further recs if doesn't tolerate this dose due to low BP. Further plan as above. GI Prophylaxis: Pepcid Resuscitation Status: Do Not Resuscitate - Time spent with patient Time with patient PN: 70 minutes - Physician Narriative Physician: other (Dr. Natalie Rojas) Hospital Course Summary Disclaimer: The visit summary below is not to be considered part of the above Progress Note. Hospital Course: Plan - 05/08/17 (Admission) Agree with admission to [facility] under the care of Dr. Alfaro and team for psychiatric evaluation and treatment. Patient is high elopement risk - elopement precautions. Provide safe and supportive environment and encourage participation in floor activities. Dr. Alfaro attempting to avoid antipsychotic medications as some of the patient's agitation may be secondary to EPS/akathesia from the Haldol. Recent acute hospitalization for a-fib with RVR. Patient seen and evaluated by Dr. Ragsdale who recommended metoprolol 25mg BID. In light of persistent borderline hypotension, will decrease metoprolol to 12.5mg BID. Monitor blood pressure closely and hold metoprolol if systolic pressure <100 or heart rate < 50 bpm. May consider consult to Dr. Ragsdale if patient becomes symptomatic, recurrence of a-fib with RVR or persistent hypotension with low dose metoprolol. Patient is not on any anticoagulation at this time, including no ASA. Given his recent + fecal occult blood test on 05/05/17, will hold on ASA and anticoagulation. Will add Pepcid 20mg po daily for GI protection. Nausea/vomiting present at time of acute admission has resolved. Zofran as needed. Continue to encourage oral intake. Leukopenia noted with WBC at 3.3 on 05/07/17. Will monitor periodically throughout admission. Persistent normocytic anemia noted with hemoglobin stable at 11.0. B12 and folate results pending. Monitor periodically throughout admission. TSH stable on 05/03 at1.96. Continue other home medications. Upon discharge, patient's care will be returned to his PCP, Dr. Decker. Appreciate the opportunity to assist in the care of Mr. Mcdonnell. Patient code status - DNR: documentation noted in chart.
[2017-05-09] MEDS: PANTOPRAZOLE 20 MG TABLET PO SCH ×2 (05:43→08:20)
--- NOTE | 2017-05-09 17:10 | Neuropsych Progress Note ---
[facility] Subjective Date: 05/10/17 - Sujective/Severity of Illness Medications: Hydrocodone Bitart/Acetaminophen ([place] 5/325) 1 tab PO Q4HR PRN PRN Reason: Pain Bisacodyl (Dulcolax) 10 mg RECTALLY DAILY PRN PRN Reason: Constipation Divalproex Sodium (Depakote Sprinkle) 500 mg PO BID [facility] Last Admin: 05/08/17 11:52 Dose: Not Given Fentanyl (Duragesic Patch) 12 mcg TD Q3D@0900 [facility] Fentanyl Citrate (Duragesic Patch Removal) 1 removal TD Q3D [facility] Lorazepam (Ativan) 1 mg PO Q6H PRN PRN Reason: Extreme agitation Last Admin: 05/07/17 19:48 Dose: 1 mg Lorazepam (Ativan Inj) 1 mg IM Q6H PRN PRN Reason: Extreme agitation Magnesium Hydroxide (Mom) 30 ml PO DAILY PRN PRN Reason: Constipation Metoprolol Tartrate (Lopressor) 12.5 mg PO BIDBS [facility] Last Admin: 05/09/17 08:19 Dose: 12.5 mg Ondansetron HCl (Zofran) 4 mg IVP Q6H PRN PRN Reason: Nausea Pantoprazole Sodium (Protonix) 20 mg PO ACB [facility] Last Admin: 05/09/17 08:20 Dose: Not Given Sodium Chloride (Iv Flush) 10 - 80 ml IVF PRN PRN PRN Reason: Flushing Subjective: Patient seen and chart reviewed. Case discussed with treatment team. On interview, patient is lying in bed while staff are caring for him and only mumbles unintelligibly. Nursing staff report patient can become physically aggressive with cares but manages much better if you explain to him thoroughly ahead of time. He continues to sleep frequently through day. Patient slept 3.5 hours overnight. VSS. Appetite continues to be quite limited - ST to evaluate when he wakes up. Psychotropic PRNs required in the past 24 hours: none. Start Time: 10:00 Stop Time: 10:20 Mental Status Exam Vitals: Last Vital Signs Temp 97.9 F 05/09/17 16:00 Pulse 59 L 05/09/17 16:00 Resp 16 05/09/17 16:00 BP 118/72 05/09/17 16:00 Pulse Ox 98 05/09/17 16:00 Height: 1.83 m Weight: 75.2 kg - Mental Status Exam Muscle Strength/Tone: Weak Dressing: Other (Hospital gown) Grooming: Fair Attitude: Combative (improving) Motor Activity: Retardation Eye Contact: Poor Speech: Slowed Volume: Soft Rhythm: Mumbled, Paucity of Language Orientation: Disoriented to time, Disoriented to place, Disoriented to situation , Oriented to person Mood: Neutral Affect: Flat Rate of Thoughts: Delayed Thought Organization: Confused Associations: Illogical Abstract Reasoning: Impaired, concrete Computation: Poor Computation Thought Content: Other (Poverty of thought) Perception/Psychotic: Perception Normal Language: Naming Impaired Fund of Knowledge: Poor fund of knowledge Memory: Poor-immediate, Poor-recent, Poor-remote Suicidal Ideation: None Homicidal Ideation: None Insight: Impaired Judgement: Impaired Impulse Control: Poor - Laboratory Result Diagrams: 05/09/17 06:53 05/09/17 06:53 Laboratory Results - last 24 hr 05/09/17 05/09/17 05/09/17 06:53 06:53 06:53 WBC 3.3 L RBC 4.05 L Hgb 11.7 L Hct 35.8 L MCV 88.4 MCH 28.9 MCHC 32.7 RDW Std Deviation 45.3 Plt Count 221 MPV 10.0 Immature Gran % (Auto) 0.3 Neut % (Auto) 45.7 Lymph % (Auto) 39.1 Whiteside % (Auto) 8.5 Eos % (Auto) 5.5 H Baso % (Auto) 0.9 Neut # (Auto) 1.5 L Lymph # (Auto) 1.3 Whiteside # (Auto) 0.3 Eos # (Auto) 0.2 Baso # (Auto) 0.0 Abs Immat Gran (auto) 0.01 Turbidity < 20 Sodium 142 Potassium 3.6 Chloride 108 H Carbon Dioxide 25 Anion Gap 9 BUN 5.0 L Creatinine 0.7 L GFR Calculation 114 BUN/Creatinine Ratio 7 Glucose 113 H Hemoglobin A1c 5.2 Calculated Osmolality 271 Calcium 8.5 Total Bilirubin 0.50 Icterus Index < 2 AST 25 ALT 41 Alkaline Phosphatase 89 Total Protein 5.7 L Albumin 3.0 L Globulin 2.7 Albumin/Globulin Ratio 1.1 Triglycerides Cholesterol LDL Cholesterol, Calc VLDL Cholesterol HDL Cholesterol Cholesterol/HDL Ratio Specimen Hemolysis < 15 Ur Collection Type Urine Color Urine Clarity Urine pH Ur Specific [place] Urine Protein Urine Glucose (UA) Urine Ketones Urine Occult Blood Urine Nitrate Urine Bilirubin Urine Urobilinogen Ur Leukocyte Esterase Urinalysis Comment 05/09/17 05/09/17 06:53 13:29 WBC RBC Hgb Hct MCV MCH MCHC RDW Std Deviation Plt Count MPV Immature Gran % (Auto) Neut % (Auto) Lymph % (Auto) Whiteside % (Auto) Eos % (Auto) Baso % (Auto) Neut # (Auto) Lymph # (Auto) [place] # (Auto) Eos # (Auto) Baso # (Auto) Abs Immat Gran (auto) Turbidity Sodium Potassium Chloride Carbon Dioxide Anion Gap BUN Creatinine GFR Calculation BUN/Creatinine Ratio Glucose Hemoglobin A1c Calculated Osmolality Calcium Total Bilirubin Icterus Index AST ALT Alkaline Phosphatase Total Protein Albumin Globulin Albumin/Globulin Ratio Triglycerides 167 H Cholesterol 163 LDL Cholesterol, Calc 103.6 VLDL Cholesterol 33.4 H HDL Cholesterol 26 L Cholesterol/HDL Ratio 6.3 H Specimen Hemolysis Ur Collection Type Urine, clean catch Urine Color Yellow Urine Clarity Clear Urine pH 6.0 Ur Specific [place] >=1.030 H Urine Protein Negative Urine Glucose (UA) Negative Urine Ketones 3+ A Urine Occult Blood Negative Urine Nitrate Negative Urine Bilirubin 2+ A Urine Urobilinogen 1.0 Ur Leukocyte Esterase Negative Urinalysis Comment Microscopic not ind. Assessment and Plan (1) Major neurocognitive disorder Current visit: Yes Status: Acute (2) Atrial fibrillation Current visit: Yes Status: Chronic (3) Normocytic anemia Current visit: Yes Status: Acute (4) Hypertension Current visit: Yes Status: Chronic (5) Coronary artery disease Current visit: Yes Status: Chronic (6) Dehydration Problem details: present on admission. Current visit: No Status: Acute Hospital Course Summary Disclaimer: The visit summary below is not to be considered part of the above Progress Note. Hospital Course: Plan - 05/08/17 (Admission) Agree with admission to [facility] under the care of Dr. Alfaro and team for psychiatric evaluation and treatment. Patient is high elopement risk - elopement precautions. Provide safe and supportive environment and encourage participation in floor activities. Dr. Alfaro attempting to avoid antipsychotic medications as some of the patient's agitation may be secondary to EPS/akathesia from the Haldol. Recent acute hospitalization for a-fib with RVR. Patient seen and evaluated by Dr. Ragsdale who recommended metoprolol 25mg BID. In light of persistent borderline hypotension, will decrease metoprolol to 12.5mg BID. Monitor blood pressure closely and hold metoprolol if systolic pressure <100 or heart rate < 50 bpm. May consider consult to Dr. Ragsdale if patient becomes symptomatic, recurrence of a-fib with RVR or persistent hypotension with low dose metoprolol. Patient is not on any anticoagulation at this time, including no ASA. Given his recent + fecal occult blood test on 05/05/17, will hold on ASA and anticoagulation. Will add Pepcid 20mg po daily for GI protection. Nausea/vomiting present at time of acute admission has resolved. Zofran as needed. Continue to encourage oral intake. Leukopenia noted with WBC at 3.3 on 05/07/17. Will monitor periodically throughout admission. Persistent normocytic anemia noted with hemoglobin stable at 11.0. B12 and folate results pending. Monitor periodically throughout admission. TSH stable on 05/03 at1.96. Continue other home medications. Upon discharge, patient's care will be returned to his PCP, Dr. Decker. Appreciate the opportunity to assist in the care of Mr. Mcdonnell. Patient code status - DNR: documentation noted in chart. 05/09/17 Psych: Will start melatonin 5mg PO q HS in an effort to improve patient' s sleep cycle; improved from admission overall.
[2017-05-09] MEDS ORDERED: MELATONIN 5 MG TABLET PO SCH (21:00)
[2017-05-10] MEDS: PANTOPRAZOLE 20 MG TABLET PO SCH (05:38)
--- NOTE | 2017-05-10 16:04 | Neuropsych Progress Note ---
[facility] Subjective Date: 05/10/17 - Sujective/Severity of Illness Medications: Hydrocodone Bitart/Acetaminophen ([place] 5/325) 1 tab PO Q4HR PRN PRN Reason: Pain Bisacodyl (Dulcolax) 10 mg RECTALLY DAILY PRN PRN Reason: Constipation Last Admin: 05/10/17 12:16 Dose: 10 mg Divalproex Sodium (Depakote Sprinkle) 500 mg PO BID [facility] Last Admin: 05/08/17 11:52 Dose: Not Given Fentanyl (Duragesic Patch) 12 mcg TD Q3D@0900 [facility] Last Admin: 05/10/17 12:16 Dose: 12 mcg Fentanyl Citrate (Duragesic Patch Removal) 1 removal TD Q3D [facility] Last Admin: 05/10/17 12:17 Dose: Not Given Lorazepam (Ativan) 1 mg PO Q6H PRN PRN Reason: Extreme agitation Last Admin: 05/07/17 19:48 Dose: 1 mg Lorazepam (Ativan Inj) 1 mg IM Q6H PRN PRN Reason: Extreme agitation Magnesium Hydroxide (Mom) 30 ml PO DAILY PRN PRN Reason: Constipation Melatonin (Melatonin) 5 mg PO HS [facility] Last Admin: 05/09/17 20:41 Dose: 5 mg Metoprolol Tartrate (Lopressor) 12.5 mg PO BIDBS [facility] Last Admin: 05/10/17 12:15 Dose: 12.5 mg Ondansetron HCl (Zofran) 4 mg IVP Q6H PRN PRN Reason: Nausea Pantoprazole Sodium (Protonix) 20 mg PO ACB [facility] Last Admin: 05/10/17 05:38 Dose: 20 mg Sodium Chloride (Iv Flush) 10 - 80 ml IVF PRN PRN PRN Reason: Flushing Subjective: Patient seen and chart reviewed. Case discussed with treatment team. On interview, patient is lying in bed while staff are caring for him and only mumbles unintelligibly. Nursing staff report patient can become physically aggressive with cares but manages much better if you explain to him thoroughly ahead of time. Patient again slept 3.5 hours overnight. VSS. Appetite continues to be quite limited - ST to evaluate when he wakes up more. Psychotropic PRNs required in the past 24 hours: none. Start Time: 10:00 Stop Time: 10:20 Mental Status Exam Vitals: Last Vital Signs Temp 97.4 F 05/10/17 12:15 Pulse 68 05/10/17 12:15 Resp 18 05/10/17 12:15 BP 113/67 05/10/17 12:15 Pulse Ox 96 05/10/17 12:15 Height: 1.83 m Weight: 75.2 kg - Mental Status Exam Muscle Strength/Tone: Weak Dressing: Other (Hospital gown) Grooming: Fair Attitude: Combative (improving) Motor Activity: Retardation Eye Contact: Poor Speech: Slowed Volume: Soft Rhythm: Mumbled, Paucity of Language Orientation: Disoriented to time, Disoriented to place, Disoriented to situation , Oriented to person Mood: Neutral Rate of Thoughts: Delayed Thought Organization: Confused Associations: Illogical Abstract Reasoning: Impaired, concrete Computation: Poor Computation Thought Content: Other (Poverty of thought) Perception/Psychotic: Perception Normal Language: Naming Impaired Fund of Knowledge: Poor fund of knowledge Memory: Poor-immediate, Poor-recent, Poor-remote Suicidal Ideation: None Homicidal Ideation: None Insight: Impaired Judgement: Impaired Impulse Control: Poor - Laboratory Result Diagrams: 05/09/17 06:53 05/09/17 06:53 Assessment and Plan (1) Major neurocognitive disorder Current visit: Yes Status: Acute (2) Atrial fibrillation Current visit: Yes Status: Chronic (3) Normocytic anemia Current visit: Yes Status: Acute (4) Hypertension Current visit: Yes Status: Chronic (5) Coronary artery disease Current visit: Yes Status: Chronic (6) Dehydration Problem details: present on admission. Current visit: No Status: Acute Hospital Course Summary Disclaimer: The visit summary below is not to be considered part of the above Progress Note. Hospital Course: Plan - 05/08/17 (Admission) Agree with admission to [facility] under the care of Dr. Alfaro and team for psychiatric evaluation and treatment. Patient is high elopement risk - elopement precautions. Provide safe and supportive environment and encourage participation in floor activities. Dr. Alfaro attempting to avoid antipsychotic medications as some of the patient's agitation may be secondary to EPS/akathesia from the Haldol. Recent acute hospitalization for a-fib with RVR. Patient seen and evaluated by Dr. Ragsdale who recommended metoprolol 25mg BID. In light of persistent borderline hypotension, will decrease metoprolol to 12.5mg BID. Monitor blood pressure closely and hold metoprolol if systolic pressure <100 or heart rate < 50 bpm. May consider consult to Dr. Ragsdale if patient becomes symptomatic, recurrence of a-fib with RVR or persistent hypotension with low dose metoprolol. Patient is not on any anticoagulation at this time, including no ASA. Given his recent + fecal occult blood test on 05/05/17, will hold on ASA and anticoagulation. Will add Pepcid 20mg po daily for GI protection. Nausea/vomiting present at time of acute admission has resolved. Zofran as needed. Continue to encourage oral intake. Leukopenia noted with WBC at 3.3 on 05/07/17. Will monitor periodically throughout admission. Persistent normocytic anemia noted with hemoglobin stable at 11.0. B12 and folate results pending. Monitor periodically throughout admission. TSH stable on 05/03 at1.96. Continue other home medications. Upon discharge, patient's care will be returned to his PCP, Dr. Decker. Appreciate the opportunity to assist in the care of Mr. Mcdonnell. Patient code status - DNR: documentation noted in chart. 05/09/17 Psych: Will start melatonin 5mg PO q HS in an effort to improve patient' s sleep cycle; improved from admission overall. 05/10/17 Psych: Will increase melatonin to 10mg PO q HS to target insomnia, consider restarting Depakote at HS tomorrow. Would like to discuss goals of care with treatment team and family.
[2017-05-10] MEDS: MELATONIN 5 MG TABLET PO SCH (21:28)
[2017-05-11] MEDS: PANTOPRAZOLE 20 MG TABLET PO SCH (06:41)
--- NOTE | 2017-05-11 15:37 | Neuropsych Progress Note ---
[facility] Subjective Date: 05/11/17 - Sujective/Severity of Illness Medications: Hydrocodone Bitart/Acetaminophen ([place] 5/325) 1 tab PO Q4HR PRN PRN Reason: Pain Bisacodyl (Dulcolax) 10 mg RECTALLY DAILY PRN PRN Reason: Constipation Last Admin: 05/10/17 12:16 Dose: 10 mg Divalproex Sodium (Depakote Sprinkle) 500 mg PO BID [facility] Last Admin: 05/08/17 11:52 Dose: Not Given Fentanyl (Duragesic Patch) 12 mcg TD Q3D@0900 [facility] Last Admin: 05/10/17 12:16 Dose: 12 mcg Fentanyl Citrate (Duragesic Patch Removal) 1 removal TD Q3D [facility] Last Admin: 05/10/17 12:17 Dose: Not Given Lorazepam (Ativan) 1 mg PO Q6H PRN PRN Reason: Extreme agitation Last Admin: 05/07/17 19:48 Dose: 1 mg Lorazepam (Ativan Inj) 1 mg IM Q6H PRN PRN Reason: Extreme agitation Magnesium Hydroxide (Mom) 30 ml PO DAILY PRN PRN Reason: Constipation Melatonin (Melatonin) 10 mg PO HS [facility] Last Admin: 05/10/17 21:28 Dose: 10 mg Metoprolol Tartrate (Lopressor) 12.5 mg PO BIDBS [facility] Last Admin: 05/11/17 08:41 Dose: 12.5 mg Ondansetron HCl (Zofran) 4 mg IVP Q6H PRN PRN Reason: Nausea Pantoprazole Sodium (Protonix) 20 mg PO ACB [facility] Last Admin: 05/11/17 06:41 Dose: 20 mg Sodium Chloride (Iv Flush) 10 - 80 ml IVF PRN PRN PRN Reason: Flushing Subjective: Patient seen and chart reviewed. Case discussed with treatment team. On interview, patient is sitting in gerichair in dayroom. He smiles at me but does not speak. He lifts his arms in the air in a disorganized fashion. Nursing staff report patient's aggression has mostly resolved so that he is only mildly resistive with cares; he does better if people explain their actions to him ahead of time. Patient again slept only 1.25 hours overnight. VSS. Appetite continues to be limited but improving - diet has now been changed to pureed foods. Psychotropic PRNs required in the past 24 hours: none. I spoke about patient's care at length with his son Trever and discussed past psych history. He had been seen only 2x by a physician and diagnosed as bipolar but it seems as though this was after he had already developed dementia. Agreed not to start further medication at this time but planned family meeting with Trever and LACEYJULIA Waterman to discuss further plan of care on Thursday AM. Start Time: 12:40 Stop Time: 13:00 Care: >50% of this visit spent in counseling/coordination care. Mental Status Exam Vitals: Last Vital Signs Temp 97.6 F 05/11/17 08:00 Pulse 79 05/11/17 08:00 Resp 16 05/11/17 08:00 BP 116/69 05/11/17 08:00 Pulse Ox 96 05/11/17 08:00 Height: 1.83 m Weight: 75.2 kg - Mental Status Exam Muscle Strength/Tone: Rigid Dressing: Casual Grooming: Fair Attitude: Cooperative (mostly) Motor Activity: Retardation Eye Contact: Poor Speech: Slowed Volume: Soft Rhythm: Mumbled, Paucity of Language Orientation: Disoriented to time, Disoriented to place, Disoriented to situation , Oriented to person Mood: Neutral (smiles today which I haven't seen before) Rate of Thoughts: Delayed Thought Organization: Confused Associations: Illogical Abstract Reasoning: Impaired, concrete Computation: Poor Computation Thought Content: Other (Poverty of thought) Perception/Psychotic: Perception Normal Language: Naming Impaired Fund of Knowledge: Poor fund of knowledge Memory: Poor-immediate, Poor-recent, Poor-remote Suicidal Ideation: None Homicidal Ideation: None Insight: Impaired Judgement: Impaired Impulse Control: Other (Limited though improved from previous) - Laboratory Result Diagrams: 05/09/17 06:53 05/09/17 06:53 Assessment and Plan (1) Major neurocognitive disorder Current visit: Yes Status: Acute (2) Atrial fibrillation Current visit: Yes Status: Chronic (3) Normocytic anemia Current visit: Yes Status: Acute (4) Hypertension Current visit: Yes Status: Chronic (5) Coronary artery disease Current visit: Yes Status: Chronic (6) Dehydration Problem details: present on admission. Current visit: No Status: Acute Hospital Course Summary Disclaimer: The visit summary below is not to be considered part of the above Progress Note. Hospital Course: Plan - 05/08/17 (Admission) Agree with admission to [facility] under the care of Dr. Alfaro and team for psychiatric evaluation and treatment. Patient is high elopement risk - elopement precautions. Provide safe and supportive environment and encourage participation in floor activities. Dr. Alfaro attempting to avoid antipsychotic medications as some of the patient's agitation may be secondary to EPS/akathesia from the Haldol. Recent acute hospitalization for a-fib with RVR. Patient seen and evaluated by Dr. Ragsdale who recommended metoprolol 25mg BID. In light of persistent borderline hypotension, will decrease metoprolol to 12.5mg BID. Monitor blood pressure closely and hold metoprolol if systolic pressure <100 or heart rate < 50 bpm. May consider consult to Dr. Ragsdale if patient becomes symptomatic, recurrence of a-fib with RVR or persistent hypotension with low dose metoprolol. Patient is not on any anticoagulation at this time, including no ASA. Given his recent + fecal occult blood test on 05/05/17, will hold on ASA and anticoagulation. Will add Pepcid 20mg po daily for GI protection. Nausea/vomiting present at time of acute admission has resolved. Zofran as needed. Continue to encourage oral intake. Leukopenia noted with WBC at 3.3 on 05/07/17. Will monitor periodically throughout admission. Persistent normocytic anemia noted with hemoglobin stable at 11.0. B12 and folate results pending. Monitor periodically throughout admission. TSH stable on 05/03 at1.96. Continue other home medications. Upon discharge, patient's care will be returned to his PCP, Dr. Decker. Appreciate the opportunity to assist in the care of Mr. Mcdonnell. Patient code status - DNR: documentation noted in chart. 05/09/17 Psych: Will start melatonin 5mg PO q HS in an effort to improve patient' s sleep cycle; improved from admission overall. 05/10/17 Psych: Will increase melatonin to 10mg PO q HS to target insomnia, consider restarting Depakote at HS tomorrow. Would like to discuss goals of care with treatment team and family. 05/11/17 Psych: Have discontinued PRN narcotics as he hasn't taken them anyway and can cause increased confusion. Continue current care otherwise; family meeting scheduled for Thursday to discuss plan of care - Hospice vs. return to LTC facility, etc.
[2017-05-11] MEDS ORDERED: LORazepam 0.5 MG TABLET PO PRN (15:39)
[2017-05-11] MEDS: MELATONIN 5 MG TABLET PO SCH (20:32)
[2017-05-12] MEDS: PANTOPRAZOLE 20 MG TABLET PO SCH (05:46)
--- NOTE | 2017-05-12 14:15 | Neuropsych Progress Note ---
[facility] Subjective Date: 05/12/17 - Sujective/Severity of Illness Medications: Bisacodyl (Dulcolax) 10 mg RECTALLY DAILY PRN PRN Reason: Constipation Last Admin: 05/10/17 12:16 Dose: 10 mg Fentanyl (Duragesic Patch) 12 mcg TD Q3D@0900 [facility] Last Admin: 05/10/17 12:16 Dose: 12 mcg Fentanyl Citrate (Duragesic Patch Removal) 1 removal TD Q3D [facility] Last Admin: 05/10/17 12:17 Dose: Not Given Lorazepam (Ativan Inj) 0.5 mg IM Q6H PRN PRN Reason: Extreme agitation Lorazepam (Ativan) 0.5 mg PO Q6H PRN PRN Reason: Extreme agitation Magnesium Hydroxide (Mom) 30 ml PO DAILY PRN PRN Reason: Constipation Melatonin (Melatonin) 10 mg PO HS [facility] Last Admin: 05/11/17 20:32 Dose: 10 mg Metoprolol Tartrate (Lopressor) 12.5 mg PO BIDBS [facility] Last Admin: 05/12/17 10:56 Dose: Not Given Ondansetron HCl (Zofran) 4 mg IVP Q6H PRN PRN Reason: Nausea Pantoprazole Sodium (Protonix) 20 mg PO ACB [facility] Last Admin: 05/12/17 05:46 Dose: 20 mg Sodium Chloride (Iv Flush) 10 - 80 ml IVF PRN PRN PRN Reason: Flushing Subjective: Patient seen and chart reviewed. Case discussed with treatment team. On interview, patient is lying in bed and smiles slightly but offers very little information. Patient continues to be somewhat stiff in his movements. Nursing staff report patient has improved from admission but has some overnight agitation including swinging at [employer]. Patient slept 7.25 overnight. VSS. Appetite improved from admission though limited. Psychotropic PRNs required in the past 24 hours: none. Start Time: 10:00 Stop Time: 10:20 Mental Status Exam Vitals: Last Vital Signs Temp 97.6 F 05/12/17 08:00 Pulse 73 05/12/17 08:00 Resp 16 05/12/17 08:00 BP 100/65 05/12/17 08:00 Pulse Ox 98 05/12/17 08:00 Height: 1.83 m Weight: 75.2 kg - Mental Status Exam Muscle Strength/Tone: Rigid Dressing: Casual Grooming: Fair Attitude: Cooperative (mostly) Motor Activity: Retardation Eye Contact: Poor Speech: Slowed Volume: Soft Rhythm: Mumbled, Paucity of Language Orientation: Disoriented to time, Disoriented to place, Disoriented to situation , Oriented to person Mood: Neutral (mood lability improved - typically more agitated overnight) Rate of Thoughts: Delayed Thought Organization: Confused Associations: Illogical Abstract Reasoning: Impaired, concrete Computation: Poor Computation Thought Content: Other (Poverty of thought) Perception/Psychotic: Perception Normal Language: Naming Impaired Fund of Knowledge: Poor fund of knowledge Memory: Poor-immediate, Poor-recent, Poor-remote Suicidal Ideation: None Homicidal Ideation: None Insight: Impaired Judgement: Impaired Impulse Control: Other (Limited though improved from previous) - Laboratory Result Diagrams: 05/09/17 06:53 05/09/17 06:53 Assessment and Plan (1) Major neurocognitive disorder Current visit: Yes Status: Acute R/O Parkinson's disease (2) Atrial fibrillation Current visit: Yes Status: Chronic (3) Normocytic anemia Current visit: Yes Status: Acute (4) Hypertension Current visit: Yes Status: Chronic (5) Coronary artery disease Current visit: Yes Status: Chronic (6) Dehydration Problem details: present on admission. Current visit: No Status: Acute Hospital Course Summary Disclaimer: The visit summary below is not to be considered part of the above Progress Note. Hospital Course: Plan - 05/08/17 (Admission) Agree with admission to [facility] under the care of Dr. Alfaro and team for psychiatric evaluation and treatment. Patient is high elopement risk - elopement precautions. Provide safe and supportive environment and encourage participation in floor activities. Dr. Alfaro attempting to avoid antipsychotic medications as some of the patient's agitation may be secondary to EPS/akathesia from the Haldol. Recent acute hospitalization for a-fib with RVR. Patient seen and evaluated by Dr. Ragsdale who recommended metoprolol 25mg BID. In light of persistent borderline hypotension, will decrease metoprolol to 12.5mg . Monitor blood pressure closely and hold metoprolol if systolic pressure <100 or heart rate < 50 bpm. May consider consult to Dr. Ragsdale if patient becomes symptomatic, recurrence of a-fib with RVR or persistent hypotension with low dose metoprolol. Patient is not on any anticoagulation at this time, including no ASA. Given his recent + fecal occult blood test on 05/05/17, will hold on ASA and anticoagulation. Will add Pepcid 20mg po daily for GI protection. Nausea/vomiting present at time of acute admission has resolved. Zofran as needed. Continue to encourage oral intake. Leukopenia noted with WBC at 3.3 on 05/07/17. Will monitor periodically throughout admission. Persistent normocytic anemia noted with hemoglobin stable at 11.0. B12 and folate results pending. Monitor periodically throughout admission. TSH stable on 05/03 at1.96. Continue other home medications. Upon discharge, patient's care will be returned to his PCP, Dr. Decker. Appreciate the opportunity to assist in the care of Mr. Mcdonnell. Patient code status - DNR: documentation noted in chart. 05/09/17 Psych: Will start melatonin 5mg PO q HS in an effort to improve patient' s sleep cycle; improved from admission overall. 05/10/17 Psych: Will increase melatonin to 10mg PO q HS to target insomnia, consider restarting Depakote at HS tomorrow. Would like to discuss goals of care with treatment team and family. 05/11/17 Psych: Have discontinued PRN narcotics as he hasn't taken them anyway and can cause increased confusion. Continue current care otherwise; family meeting scheduled for Thursday to discuss plan of care - Hospice vs. return to LTC facility, etc. 05/12/17 Psych: Patient is now sleeping better. Continues to have agitation overnight - will discuss in family meeting tomorrow as far as goals of treatment , plan of care. Continue current care otherwise for today.
[2017-05-12] MEDS: MELATONIN 5 MG TABLET PO SCH (20:00)
[2017-05-13] MEDS: PANTOPRAZOLE 20 MG TABLET PO SCH (06:08)
--- NOTE | 2017-05-13 16:20 | Neuropsych Progress Note ---
[facility] Subjective Date: 05/14/17 - Sujective/Severity of Illness Medications: Bisacodyl (Dulcolax) 10 mg RECTALLY DAILY PRN PRN Reason: Constipation Last Admin: 05/10/17 12:16 Dose: 10 mg Fentanyl (Duragesic Patch) 12 mcg TD Q3D@0900 [facility] Last Admin: 05/13/17 08:14 Dose: 12 mcg Fentanyl Citrate (Duragesic Patch Removal) 1 removal TD Q3D [facility] Last Admin: 05/13/17 08:14 Dose: 1 removal Lorazepam (Ativan Inj) 0.5 mg IM Q6H PRN PRN Reason: Extreme agitation Lorazepam (Ativan) 0.5 mg PO Q6H PRN PRN Reason: Extreme agitation Magnesium Hydroxide (Mom) 30 ml PO DAILY PRN PRN Reason: Constipation Melatonin (Melatonin) 10 mg PO HS [facility] Last Admin: 05/12/17 20:00 Dose: 10 mg Metoprolol Tartrate (Lopressor) 12.5 mg PO BIDBS [facility] Last Admin: 05/13/17 08:30 Dose: 12.5 mg Ondansetron HCl (Zofran) 4 mg IVP Q6H PRN PRN Reason: Nausea Pantoprazole Sodium (Protonix) 20 mg PO ACB [facility] Last Admin: 05/13/17 06:08 Dose: 20 mg Sodium Chloride (Iv Flush) 10 - 80 ml IVF PRN PRN PRN Reason: Flushing Subjective: Patient seen and chart reviewed. Case discussed with treatment team. On interview, patient is sitting up in chair visiting with [place] and appears euthymic, smiling frequently. Patient continues to be somewhat stiff in his movements. Nursing staff report patient has improved from admission and did not have any aggression overnight. Patient slept well overnight. VSS. Appetite improved from admission though limited. Psychotropic PRNs required in the past 24 hours: none. Family meeting held with CHELSIE PETERS and discussed diagnosis, progression, treatment plan. He would like to seek a Hospice consult after patient returns to facility. Start Time: 09:00 Stop Time: 09:10 Mental Status Exam Vitals: Last Vital Signs Temp 97.4 F 05/13/17 15:53 Pulse 69 05/13/17 15:53 Resp 16 05/13/17 15:53 BP 99/63 05/13/17 15:53 Pulse Ox 96 05/13/17 15:53 Height: 1.83 m Weight: 75.2 kg - Mental Status Exam Muscle Strength/Tone: Rigid Dressing: Casual Grooming: Fair Attitude: Cooperative (mostly) Motor Activity: Retardation Eye Contact: Poor Speech: Slowed Volume: Soft Rhythm: Mumbled, Paucity of Language Orientation: Disoriented to time, Disoriented to place, Disoriented to situation , Oriented to person Mood: Euthymic Affect: Relaxed Rate of Thoughts: Delayed Thought Organization: Confused Abstract Reasoning: Impaired, concrete Computation: Poor Computation Thought Content: Other (Poverty of thought) Perception/Psychotic: Perception Normal Language: Naming Impaired Fund of Knowledge: Poor fund of knowledge Memory: Poor-immediate, Poor-recent, Poor-remote Suicidal Ideation: None Homicidal Ideation: None Insight: Impaired Judgement: Impaired Impulse Control: Fair - Laboratory Result Diagrams: 05/09/17 06:53 05/09/17 06:53 Assessment and Plan (1) Major neurocognitive disorder Problem details: due to multiple etiologies (vascular, frontotemporal disease), severe, with behavioral disturbance Status: Acute R/O Parkinson's disease (2) Atrial fibrillation Status: Chronic (3) Normocytic anemia Status: Acute (4) Hypertension Status: Chronic (5) Coronary artery disease Status: Chronic (6) Dehydration Problem details: present on admission. Status: Acute Hospital Course Summary Disclaimer: The visit summary below is not to be considered part of the above Progress Note. Hospital Course: Plan - 05/08/17 (Admission) Agree with admission to [facility] under the care of Dr. Alfaro and team for psychiatric evaluation and treatment. Patient is high elopement risk - elopement precautions. Provide safe and supportive environment and encourage participation in floor activities. Dr. Alfaor attempting to avoid antipsychotic medications as some of the patient's agitation may be secondary to EPS/akathesia from the Haldol. Recent acute hospitalization for a-fib with RVR. Patient seen and evaluated by Dr. Ragsdale who recommended metoprolol 25mg BID. In light of persistent borderline hypotension, will decrease metoprolol to 12.5mg . Monitor blood pressure closely and hold metoprolol if systolic pressure <100 or heart rate < 50 bpm. May consider consult to Dr. Ragsdale if patient becomes symptomatic, recurrence of a-fib with RVR or persistent hypotension with low dose metoprolol. Patient is not on any anticoagulation at this time, including no ASA. Given his recent + fecal occult blood test on 05/05/17, will hold on ASA and anticoagulation. Will add Pepcid 20mg po daily for GI protection. Nausea/vomiting present at time of acute admission has resolved. Zofran as needed. Continue to encourage oral intake. Leukopenia noted with WBC at 3.3 on 05/07/17. Will monitor periodically throughout admission. Persistent normocytic anemia noted with hemoglobin stable at 11.0. B12 and folate results pending. Monitor periodically throughout admission. TSH stable on 05/03 at1.96. Continue other home medications. Upon discharge, patient's care will be returned to his PCP, Dr. Decker. Appreciate the opportunity to assist in the care of Mr. Mcdonnell. Patient code status - DNR: documentation noted in chart. 05/09/17 Psych: Will start melatonin 5mg PO q HS in an effort to improve patient' s sleep cycle; improved from admission overall. 05/10/17 Psych: Will increase melatonin to 10mg PO q HS to target insomnia, consider restarting Depakote at HS tomorrow. Would like to discuss goals of care with treatment team and family. 05/11/17 Psych: Have discontinued PRN narcotics as he hasn't taken them anyway and can cause increased confusion. Continue current care otherwise; family meeting scheduled for Thursday to discuss plan of care - Hospice vs. return to LTC facility, etc. 05/12/17 Psych: Patient is now sleeping better. Continues to have agitation overnight - will discuss in family meeting tomorrow as far as goals of treatment , plan of care. Continue current care otherwise for today. 05/13/17 Psych: Patient continues to do well, sleeping well, bright, more interactive, no agitation/aggression. Discharge back to LTC facility and DPOA will seek Hospice referral there.
--- NOTE | 2017-05-13 16:24 | Extended Care Facility Orders ---
Admission Orders Admit to:: [facility] Allergies/Adverse Reactions: Allergies No Known Allergies Allergy (Verified 05/03/17 09:44) Admitting Diagnosis: dementia with behaviors disturbance Admitting Physician: Rica Alfaro MD Attending Physician: Rica Alfaro MD Code Status: Do Not Resuscitate Anticiapted Length of Stay: greater than 30 days Rehab Potential: poor Rehab Prognosis: poor Diet: 05/11/17 Lunch Full Liquid Diet [DIET] Evaluations/Treatment: Speech, Psychiatric, as needed Correction Certification: I certify that SNF services are required to be given on an Inpatient basis because of the patients need for residential care on a continuing basis for the condition(s) for which he/she received inpatient hospital services prior to his/her transfer to the SNF. SNF inpatient care is necessary for the following reasons Indication for Correction: Not Applicable - Additional Information In Event of Arrest: Do Not Start CPR Referrals: Lucretia Decker MD [Family Provider] - (Dr. Brandy Decker will see patient on rounds at the facility for Hosp. follow-up. . Patient will be seen on rounds at the facility for Mental Health follow-up. )
[2017-05-13] MEDS: MELATONIN 5 MG TABLET PO SCH (20:55)
[2017-05-13 23:29] VITALS: PULSE 95; O2SAT 95
[2017-05-14] MEDS: PANTOPRAZOLE 20 MG TABLET PO SCH (10:08)
[2017-05-14 11:07] VITALS: BP 99/65; RESP 18; TEMP 97.4
--- NOTE | 2017-05-14 21:43 | Neuropsychiatric Disch Summary ---
Discharge Information Date of admission: 05/07/17 19:39 Anticipated date of discharge: 05/14/17 Attending Physician: Rica Alfaro MD Primary care physician: John Decker MD Consults: 05/07/17 19:48 Case Management Consult [CONS] Routine Reason For Exam: Optimization of medical comorbidities Physician Consult [CONS] Routine Consulting Provider: Som Mendiola Reason For Exam: Optimization of medical comorbidities Ordering Provider has Notified Bag Bundler: No Comment: Nursing - please notify 05/07/17 19:56 Case Management Consult [CONS] Routine Reason For Exam: [facility] Screen [CONS] Routine - Discharge Diagnosis (1) Major neurocognitive disorder Status: Chronic (2) Atrial fibrillation Status: Chronic (3) Normocytic anemia Status: Acute (4) Hypertension Status: Chronic (5) Coronary artery disease Status: Chronic (6) Dehydration Status: Resolved - Laboratory Labs: 05/09/17 06:53 05/09/17 06:53 Date of Admission: 05/07/17 19:39 Chief complaint: Agitation, aggression History of Present Illness: Patient is a 61-year-old male admitted from the [facility] medical floor on 05/07/17 due to agitation, aggression in the context of being off of his psych meds while medically stabilized. Patient continued to be frequently combative with cares on medical floor. Patient has a past history of various psychiatric disorders including bipolar and was not adherent with his Depakote since prior to his recent hospitalization on medical floor. On interview, he is sitting in chair and mostly mumbles unintelligbly making little eye contact. He does state, "I'm feeling good." Patient was quite aggressive with cares last night as well but PRN Ativan was effective in calming him. Per discharge summary, that hospital course was as follows: 05/03/17 (Admission) Admit to inpatient status to CCU under the care of Dr. Serrano for close cardiac and respiratory monitoring. Dr. Ragsdale consulted for cardiac evaluation and expertise. Unknown history of arrhythmia. EKGs concerning for SVT vs. A-fib with RVR vs. Sinus tach. Discussed patient case with MADDI Amanda. Patient given metoprolol 5mg IV in ED with some rate improvement. Currently patient is rate controlled but remains dysrhythmic. Continue to monitor closely on telemetry. TSH within normal limits. Magnesium stable. Potassium stable. SIRS markers met including tachycardia, tachypnea, hyperglycemia in non- diabetic. Concerning for sepsis given hypotension, cardiac dysfunction and borderline lactate at 1.9. No current infectious source known. UA unremarkable. CXR results pending. Procalcitonin pending. Will obtain serial lactates and blood cultures x 2. Initiate Rocephin 1g IV x 24 hours for empiric treatment. If patient remains afebrile without leukocytosis or evidence of infection, consider discontinuation of antibiotics. History of nausea/vomiting since 04/27. CBC stable without leukocytosis or known fever. Hypernatremia with hyperosmolality present on admission. Patient given 2L NS in ED. Will continue NS at 125cc/hr given dehydration and current poor oral intake. Will maintain clear liquid diet as able. Will obtain speech therapy evaluation in AM for dysphagia. Monitor I&O closely as well as daily weights. Zofran as needed for nausea/vomiting. Lactate within normal limits. LFTs stable. CT abdomen/pelvis obtained in ED revealed no acute changes or disease, scattered diverticulosis without evidence of diverticulitis, moderate feces in rectal vault and no obstruction, small left lower lobe effusion and hiatal hernia. Given concern for sepsis and dysrhythmia as well as effusion noted on CT, will obtain CXR now for further complete evaluation. Encourage incentive spirometry as able. Bruise to right hip noted. No reported history of trauma. No apparent tenderness with palpation. CT abdomen/pelvis noted no acute bony changes or fracture. If apparent pain with movement or other changes are noted, may consider obtaining separate imaging of hip. Will hold off for now. Given concern for possible blood in vomit per NH, will initiate Protonix 40mg IV daily for GI protection. Will assess for occult blood in emesis. SCDs for DVT prophylaxis. Will discuss possible Lovenox or other anticoagulant with Dr. Serrano for additional prophylaxis. Continue home medications. Haldol and ativan for agitation and aggression. Baseline behaviors are unknown. May consider psychiatric consult if behaviors continue. Continue with bowel motivation as needed given history of constipation and current fecal impaction. Provide safe and supportive environment. DNR documentation noted in chart and verified by Dr. Serrano with patient's guardian. Patient is expected to stay > 2 over nights and upon discharge, care will be returned to his PCP, Dr. Decker. 05/04/17 Rhythm/rate remained stable. Cardiology consultation initiated. Echocardiogram pending. Has received fluids since admission, sodium climbing-converted to half-normal saline. Poor oral intake, refusing oral meds. Depakote converted to IV administration, anticipate psychiatric consultation, [facility] evaluation. No ongoing nausea/vomiting reported by staff; multiple bowel movements since admission. Empiric treatment initiated with ceftriaxone on admission, no clear indication of infection. Cultures negative to date-if blood cultures negative tomorrow will discontinue antibiotics. SIRS criteria can largely be explained by dehydration/tachyarrhythmias. Stable to transfer out of ICU. 05/05/17 Rhythm/rate remained stable. Cardiology recommends low-dose beta lalit. Echocardiogram unremarkable.. Continues to refuse all oral intake/medications. Depakote converted to IV administration yesterday-continue if supply available. [facility]uated [facility]-discussed with Dr. Alfaro, transfer when medically stable. Sodium has dropped 155-144; convert to low-volume normal saline with potassium ( potassium 3.5 today) Hemoglobin has dropped progressively to 13.6-10.7-9.8; likely due to hydration however no baseline values available prior to 05/02 at nursing facility. Hemoccult positive 1 but no gross blood loss and has had multiple stools after fecal impaction and several suppositories. KUB in a.m. to assess fecal volume. If hemoglobin relatively stable overnight and will transfer to inpatient psychiatric care. If hemoglobin drops further will need to discuss with patient's guardian to determine course of care. No ongoing nausea/vomiting reported by staff; multiple bowel movements since admission. Empiric treatment initiated with ceftriaxone on admission, no clear indication of infection. Blood cultures negative after 48 hours-discontinue Rocephin, urine culture also negative after 24 hours 05/06/17 Continues to refuse all oral intake/medications. Continue IVF's. Hemoccult positive 1 but no gross blood loss and has had multiple stools after fecal impaction and several suppositories. KUB shows no significant stool load Hemoglobin stable. No ongoing nausea/vomiting reported by staff; multiple bowel movements since admission. Recommend aggressive bowel regimen be ordered on DC to NM given frequent fecal impactions over the past few mos. Nursing provides all history. Spoke with Trever Mcdonnell re: patient's condition. He does report patient has had several falls at [facility] over the past month. Will check CT head. If CT is neg, and patient is not taking in p.o., will need to discuss further wishes in re: to possible hospice. Trever is open to this. He would like to have a meeting with himself and Columba (co-guardian) with the attending after CT is resulted to discuss opts. 05/07/17 Patient is looking much better today. He is eating Jell-O and drinking some. He has been accepted to [facility]. Labs and vitals are stable. CT head was negative for acute intracranial abnormality or hemorrhage. He does have moderate atrophy and changes from chronic microvascular ischemia. Hospital Course This is a general summary of the patient's hospital course. For more details refer to the complete medical record. Hospital course: Plan - 05/08/17 (Admission) Agree with admission to [facility] under the care of Dr. Alfaro and team for psychiatric evaluation and treatment. Patient is high elopement risk - elopement precautions. Provide safe and supportive environment and encourage participation in floor activities. Dr. Alfaro attempting to avoid antipsychotic medications as some of the patient's agitation may be secondary to EPS/akathesia from the Haldol. Recent acute hospitalization for a-fib with RVR. Patient seen and evaluated by Dr. Ragsdale who recommended metoprolol 25mg BID. In light of persistent borderline hypotension, will decrease metoprolol to 12.5mg . Monitor blood pressure closely and hold metoprolol if systolic pressure <100 or heart rate < 50 bpm. May consider consult to Dr. Ragsdale if patient becomes symptomatic, recurrence of a-fib with RVR or persistent hypotension with low dose metoprolol. Patient is not on any anticoagulation at this time, including no ASA. Given his recent + fecal occult blood test on 05/05/17, will hold on ASA and anticoagulation. Will add Pepcid 20mg po daily for GI protection. Nausea/vomiting present at time of acute admission has resolved. Zofran as needed. Continue to encourage oral intake. Leukopenia noted with WBC at 3.3 on 05/07/17. Will monitor periodically throughout admission. Persistent normocytic anemia noted with hemoglobin stable at 11.0. B12 and folate results pending. Monitor periodically throughout admission. TSH stable on 05/03 at1.96. Continue other home medications. Upon discharge, patient's care will be returned to his PCP, Dr. Decker. Appreciate the opportunity to assist in the care of Mr. Mcdonnell. Patient code status - DNR: documentation noted in chart. 05/09/17 Psych: Will start melatonin 5mg PO q HS in an effort to improve patient' s sleep cycle; improved from admission overall. 05/10/17 Psych: Will increase melatonin to 10mg PO q HS to target insomnia, consider restarting Depakote at HS tomorrow. Would like to discuss goals of care with treatment team and family. 05/11/17 Psych: Have discontinued PRN narcotics as he hasn't taken them anyway and can cause increased confusion. Continue current care otherwise; family meeting scheduled for Thursday to discuss plan of care - Hospice vs. return to LTC facility, etc. 05/12/17 Psych: Patient is now sleeping better. Continues to have agitation overnight - will discuss in family meeting tomorrow as far as goals of treatment , plan of care. Continue current care otherwise for today. 05/13/17 Psych: Patient continues to do well, sleeping well, bright, more interactive, no agitation/aggression. Discharge back to LTC facility and DPOA will seek Hospice referral there. Discharge Plan - Med Rec/Dispo Referrals/Follow Up: Lucretia Decker MD [Family Provider] - (Dr. Brandy Decker will see patient on rounds at the facility for Hosp. follow-up. . Patient will be seen on rounds at the facility for Mental Health follow-up. ) Additional Instructions: Discharge Diagnosis: Major Neurocognitive Disorder due to multiple etiologies, vascular and frontotemporal disease, severe, with behavioral disturbance. Reasons for Admission: Hitting, kicking staff when attempting cares. IN CASE OF PSYCHIATRIC EMERGENCY, CONTACT [facility] STAFF AT [phone] ( available 24 hrs daily). Prescriptions: New Melatonin 10 mg PO HS tab Metoprolol Tartrate [Lopressor] 12.5 mg PO BIDBS tab FentaNYL PATCH REMOVAL [Duragesic Patch Removal] 1 removal TD Q3D patch Continue Milk of Magnesia [Mom] 30 ml PO DAILY PRN PRN Reason: Constipation Bisacodyl Supp [Dulcolax] 10 mg RECTALLY DAILY PRN PRN Reason: Constipation Menthol [Biofreeze] 1 applicatio TP PRN fentaNYL [Fentanyl] 12 mcg TD Q3D Ondansetron HCl [Zofran] 4 mg PO Q4HR PRN PRN Reason: Nausea Discontinued Hydrocodone/APAP 5/325 [[place] 5/325] 1 tab PO Q4HR PRN PRN Reason: Pain LORazepam [Ativan] 0.5 mg PO Q3H PRN PRN Reason: Anxiety Haloperidol Inj [Haldol] 1 - 2 mg IVP Q4H PRN PRN Reason: Agitation LORazepam [Ativan] 0.5 mg PO HS Metoprolol Tartrate [Lopressor] 25 mg PO BIDWM #0 tab Divalproex Sprinkle [Depakote Sprinkle] 4 cap PO BID Mirtazapine [Remeron] 15 mg PO HS - Disposition 04 To [facility] Home/Facility
== END 2017-05-14 11:00 | DRG 57 ==
LOC: GEN 19:39
PROVIDERS: ADMIT Psychiatry & Neurology Psychiatry; ATTEND Psychiatry & Neurology Psychiatry